=== PATIENT | female | born 1970 | race Caucasian/White ===

== ENCOUNTER 2017-03-20 09:12 | Day surgery (SDC) | payer BC ==
[2017-03-19 12:07] LABS: CHLORIDE,CL 104 mmol/L (98-110); SODIUM,NA 137 mmol/L (136-146)
[~2017-03-20 09:12] MED LIST: Fluorescein 5 ML Vial ONE; Ketorolac 30 MG/ML SDV ONE; Lactated Ringers 1,000 ML IV SCH; Lidocaine 2% 5 ML SDV ONE; Midazolam 1 MG/ML 2 ML SDV ONE; Neostigmine Methylsulfate 1 MG/ML 5 ML Syringe ONE; Octyl 2-Cyanoacrylate 1 Tube ONE; Ondansetron 4 MG/2 ML SDV ONE; Propofol 200 MG/20 ML SDV ONE; Rocuronium 10 MG/ML 10 ML Syringe ONE; Sodium Chloride 0.9% 10 ML Syringe FLUSH PRN; Sodium Chloride 0.9% 2.5 ML Syringe FLUSH PRN; ceFAZolin 2 GM in Premix Bag 1 BAG IV ONE; fentaNYL 100 MCG/2 ML SDV ONE
--- NOTE | 2017-03-20 10:09 | PCM.PREANE ---
Preanesthetic Assessment - Anesthesia/Transfusion/Family Hx Anesthesia History: Prior Anesthesia Without Reaction Family History of Anesthesia Reaction: No Transfusion History: No Prior Transfusion(s) - Review of Systems General: No Symptoms Pulmonary: No Symptoms Cardiovascular: No Symptoms Gastrointestinal: No Symptoms Neurological: Pre-Existing Deficit Other: Reports: None - Physical Assessment NPO Status Date: 03/19/17 Height: 1.7 m Weight: 83.007 kg ASA Class: 2 Mental Status: Alert & Oriented x3 Airway Class: Mallampati = 1 Dentition: Reports: Missing Tooth/Teeth ROM/Head Extension: Full Lungs: Clear to Auscultation, Normal Respiratory Effort Cardiovascular: Regular Rate, Regular Rhythm - Lab Values: Laboratory Last Values WBC 5.92 K/uL (4.0-11.0) 03/19/17 11:32 RBC 4.03 M/uL (4.30-5.90) L 03/19/17 11:32 Hgb 12.3 g/dL (12.0-16.0) 03/19/17 11:32 Hct 37.8 % (36.0-46.0) 03/19/17 11:32 MCV 93.8 fL (80.0-98.0) 03/19/17 11:32 MCH 30.5 pg (27.0-32.0) 03/19/17 11:32 MCHC 32.5 g/dL (31.0-37.0) 03/19/17 11:32 RDW Std Deviation 41.7 fl (28.0-62.0) 03/19/17 11:32 RDW Coeff of Tanesha 12 % (11.0-15.0) 03/19/17 11:32 Plt Count 273 K/uL (150-400) 03/19/17 11:32 MPV 9.80 fL (7.40-12.00) 03/19/17 11:32 Nucleated RBC % 0.0 /100WBC 03/19/17 11:32 Nucleated RBCs # 0 K/uL 03/19/17 11:32 Sodium 137 mmol/L (136-146) 03/19/17 11:32 Potassium 4.7 mmol/L (3.5-5.1) 03/19/17 11:32 Chloride 104 mmol/L (98-110) 03/19/17 11:32 Carbon Dioxide 26 mmol/L (21-31) 03/19/17 11:32 BUN 13 mg/dL (6.0-23.0) 03/19/17 11:32 Creatinine 0.7 mg/dL (0.6-1.5) 03/19/17 11:32 Est Cr Clr Drug Dosing TNP 03/19/17 11:32 Estimated GFR (MDRD) > 60.0 ml/min 03/19/17 11:32 Glucose 196 mg/dL (60-110) H 03/19/17 11:32 POC Glucose 199 mg/dL (60-110) H 03/20/17 09:42 Calcium 9.0 mg/dL (8.8-10.8) 03/19/17 11:32 HCG, Qual NEGATIVE (NEG) 03/19/17 11:32 Blood Type O POSITIVE 03/19/17 11:32 Antibody Screen NEGATIVE 03/19/17 11:32 - Allergies Allergies/Adverse Reactions: Allergies Allergy/AdvReac Type Severity Reaction Status Date / Time hydromorphone [From Dilaudid] Allergy Chest Verified 03/20/17 09:49 Tightness morphine Allergy Chest Verified 03/20/17 09:49 Tightness Sulfa (Sulfonamide Allergy Airway Verified 03/20/17 09:49 Antibiotics) Tightness Tetracyclines Allergy Anaphylactic Verified 03/20/17 09:49 Shock - Acknowledgements Anesthesia Type Planned: General Anesthesia Pt an Appropriate Candidate for the Planned Anesthesia: Yes Alternatives and Risks of Anesthesia Discussed w Pt/Guardian: Yes Pt/Guardian Understands and Agrees with Anesthesia Plan: Yes Additional Comments: consents to fentanyl and dilaudid in OR, dislikes the way she feels with dilaudid and morphine when awake. 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 Musculoskeletal History: Reports: Back Pain, Chronic Neurological History: Reports: Neuropathy, Peripheral Psychiatric History: Reports: Anxiety, Depression, PTSD Endocrine/Metabolic History: Reports: Diabetes, Type II Hematologic History: Reports: Anemia Immunologic History: Reports: None Oncologic (Cancer) History: Reports: None Dermatologic History: Reports: None - Past Surgical History Head Surgeries/Procedures: Reports: None HEENT Surgical History: Reports: Tonsillectomy Cardiovascular Surgical History: Reports: None Respiratory Surgical History: Reports: None GI Surgical History: Reports: Bariatric Procedure, Cholecystectomy Female Surgical History: Reports: Section Neurological Surgical History: Reports: Laminectomy Musculoskeletal Surgical History: Reports: None Oncologic Surgical History: Reports: None - SUBSTANCE USE Smoking Status *Q: Never Smoker Recreational Drug Use History: No - HOME MEDS Home Medications: Home Meds LORazepam 0.5 mg PO ASDIRECTED PRN 03/19/17 [History] Lisinopril 20 mg PO DAILY 03/19/17 [History] QUEtiapine Fumarate [Seroquel] 50 mg PO BEDTIME 03/19/17 [History] Sertraline [Zoloft] 50 mg PO DAILY 03/19/17 [History] metFORMIN HCl [Metformin HCl] 1,000 mg PO BIDMEALS 03/19/17 [History] Canagliflozin [Invokana] 300 mg PO DAILY 03/20/17 [History] Cyanocobalamin (Vitamin B12) [Vitamin B12] 1,000 mcg PO DAILY 03/20/17 [History] Cyclobenzaprine HCl 10 mg PO ASDIRECTED PRN 03/20/17 [History] Ferrous Sulfate 325 mg PO DAILY 03/20/17 [History] Methylphenidate HCl 5 mg PO WITHLUNCH 03/20/17 [History] Methylphenidate HCl [Methylphenidate HCl ER] 36 mg PO DAILY 03/20/17 [History] Potassium Chloride 20 meq PO DAILY 03/20/17 [History] atorvaSTATin Calcium [Atorvastatin Calcium] 20 mg PO DAILY 03/20/17 [History] - CURRENT (IN HOUSE) MEDS Current Meds: Current Medications Lactated Ringer's (Ringers, Lactated) 1,000 mls @ 125 mls/hr IV ASDIRECTED [facility] Last Admin: 03/20/17 09:36 Dose: 125 mls/hr Sodium Chloride (Saline Flush) 10 ml FLUSH ASDIRECTED PRN PRN Reason: Keep Vein Open Sodium Chloride (Saline Flush) 2.5 ml FLUSH ASDIRECTED PRN PRN Reason: Keep Vein Open Discontinued Medications Fentanyl (Sublimaze) Confirm Administered Dose 300 mcg .ROUTE .STK-MED ONE Stop: 03/20/17 08:03 Fluorescein Sodium (Ak-Fluor) Confirm Administered Dose 5 ml .ROUTE .STK-MED ONE Stop: 03/20/17 06:51 Fluorescein Sodium (Ak-Fluor) Confirm Administered Dose 5 ml .ROUTE .STK-MED ONE Stop: 03/20/17 07:16 Glycopyrrolate () Confirm Administered Dose 1 mg .ROUTE .STK-MED ONE Stop: 03/20/17 08:05 Cefazolin Sodium/Dextrose 2 gm (/ Premix) 50 mls @ 100 mls/hr IV ONETIME ONE Stop: 03/19/17 09:22 Ketorolac Tromethamine (Toradol) Confirm Administered Dose 30 mg .ROUTE .STK- MED ONE Stop: 03/20/17 08:05 Lidocaine (Xylocaine-Mpf 2%) Confirm Administered Dose 10 ml .ROUTE .ST-MED ONE Stop: 03/20/17 08:02 Midazolam HCl (Versed 1 Mg/Ml) Confirm Administered Dose 2 mg .ROUTE .STK-MED ONE Stop: 03/20/17 08:03 Neostigmine Methylsulfate (Neostigmine) Confirm Administered Dose 5 mg .ROUTE .ST-MED ONE Stop: 03/20/17 08:05 Octyl Cyanoacrylate (Dermabond Advance) Confirm Administered Dose 1 applic .ROUTE .ST-MED ONE Stop: 03/20/17 07:16 Ondansetron HCl (Zofran) Confirm Administered Dose 4 mg .ROUTE .STK-MED ONE Stop: 03/20/17 08:05 Propofol (Diprivan 20 Ml) Confirm Administered Dose 400 mg .ROUTE .STK-MED ONE Stop: 03/20/17 08:02 Rocuronium [place] (Zemuron) Confirm Administered Dose 100 mg .ROUTE .STK-MED ONE Stop: 03/20/17 08:05
[2017-03-20] MEDS ORDERED: HYDROmorphone 2 MG/ML Syringe ONE (12:19)
[2017-03-20] MEDS ORDERED: Furosemide 40 MG/4 ML VIAL ONE (12:22)
[2017-03-20] MEDS ORDERED: fentaNYL 100 MCG/2 ML SDV IVPUSH PRN (12:27)
[2017-03-20] MEDS ORDERED: Acetaminophen/oxyCODONE 325-5 MG Tab PO PRN (12:52)
[2017-03-20] MEDS ORDERED: Promethazine 25 MG/ML SDV IM PRN (12:52)
[2017-03-20] MEDS ORDERED: Ondansetron 4 MG/2 ML SDV IVPUSH PRN (12:52)
[2017-03-20] MEDS ORDERED: Ketorolac 30 MG/ML SDV IVPUSH PRN (12:52)
[2017-03-20] MEDS ORDERED: Morphine 4 MG/ML Syringe IVPUSH PRN (12:52)
--- NOTE | 2017-03-20 12:57 | PCM.OPNOTE ---
- General Post-Op/Procedure Note Date of Surgery/Procedure: 03/20/17 Operative Procedure(s): TLH Bilatral salpengectomy left overactomy Pre Op Diagnosis: bleeding Post-Op Diagnosis: Same Anesthesia Technique: General ET Tube Primary Surgeon: Junito Buchanan Artist'S Manager: Jazmyn Irizarry EBL in mLs: 50 Complications: None Condition: Good
--- NOTE | 2017-03-20 13:54 | PCM.POSTAN ---
POST ANESTHESIA ASSESSMENT - MENTAL STATUS Mental Status: Alert, Oriented - RESPIRATORY Respiratory Status: Respiratory Rate WNL, Airway Patent, O2 Saturation Stable - CARDIOVASCULAR CV Status: Pulse Rate WNL, Blood Pressure Stable - GASTROINTESTINAL GI Status: No Symptoms - POST OP HYDRATION Hydration Status: Adequate & Stable
[2017-03-20] MEDS ORDERED: Meperidine PF 50 MG/ML Syringe IVPUSH PRN (15:12)
--- NOTE | 2017-03-20 19:33 | OR ---
SURGEON: Junito Buchanan MD DATE OF PROCEDURE: PREOPERATIVE DIAGNOSES: Postmenopausal bleeding and menorrhagia. POSTOPERATIVE DIAGNOSES: Postmenopausal bleeding and menorrhagia. OPERATION PERFORMED: Total laparoscopic hysterectomy, bilateral salpingectomy, left oophorectomy preserving the right ovary. SOCIAL WORK ADMINISTRATOR: VARUN Quevedo. ANESTHESIA: General endotracheal intubation, Yared Chmabers and Dr. Newman. ESTIMATED BLOOD LOSS: 50 mL. COMPLICATIONS: None. FINDINGS: Uterus 8-week size. Both ovaries are within normal limits. INDICATION: [place] refer to the admit note. PROCEDURE IN DETAIL: The patient was brought to the OR, properly identified, and after adequate level of general anesthesia, the patient was placed in lithotomy position with an access to the abdomen and the vagina, the uterine manipulator and colpotomizer were placed in the vagina for manipulation and then the operation shifted abdominally. After placing Donahue catheter in the bladder, stab wound was done beneath the umbilicus. The Veress needle was placed in the peritoneal cavity and that cavity insufflated with 6 L of carbon dioxide. The skin incision large to accommodate the trocar and the laparoscopy through it utilizing the Visiport technique. Once we are entered, inspection was done with the laparoscopy with above-mentioned dictated finding, 10-12 trocar placed in the left iliac fossa and 5-mm trocar in the right iliac fossa and after identifying the landmark of the pelvis using the Filiberto Harmonic scapula, the superior pedicle coagulated, transected from both sides. The tubes and ovary on the left side were removed and the round ligament was dissected, coagulated, transected. The ovary on the right side is preserved, but the tube was removed. After taken down the round ligament from both sides, then the anterior leaf of the broad ligament dissected downward medially pushing the bladder completely away from the operative field, and I can feel the uterine manipulator through the vagina. Then, the attention was paid to the uterine vessel. Then, this vessel coagulated, transected with the FILIBERTO-7 Harmonic scapula, and then circular incision in the vaginal mucosa around the tip of the manipulator detaching the cervix from its attachment to the vagina. The cervix in the right and left tubes and the left ovary was removed and then pneumoperitoneum re-established by placing vaginal pack in the vagina and we proceeded to close the vaginal cuff with 2-0 PDS interrupted sutures. While we closing that we asked the anesthesiologist to give the patient fluorescein and then after closing the vagina, and inspecting all operative field and all the pedicle, there was no oozing, no bleeding. Then, the Donahue catheter was removed. Cystoscopy was performed. The bladder was intact. Both ureteric orifices were seen with the dye coming from both of them. Thus, the patency of both ureters verified. Satisfied with these findings, the procedure ended. The instrument and hardware were retrieved from the abdomen and the vagina. The multiple laparoscopic incisions were closed in layers. Instrument and sponge count were correct. The patient tolerated the procedure well, went to recovery room in stable general condition. MATT / LUIS /[id number]
[2017-03-21 05:29] LABS: CHLORIDE,CL 107 mmol/L (98-110); SODIUM,NA 142 mmol/L (136-146)
[2017-03-21 07:49] VITALS: BP 130/81
--- NOTE | 2017-03-21 09:01 | PCM.SURGPN ---
- General Info Date of Service: 03/21/17 POD#: 1 Functional Status: Reports: Pain Controlled - Review of Systems General: Reports: No Symptoms HEENT: Reports: No Symptoms Pulmonary: Reports: No Symptoms Cardiovascular: Reports: No Symptoms Gastrointestinal: Reports: No Symptoms Genitourinary: Reports: No Symptoms Musculoskeletal: Reports: No Symptoms Skin: Reports: No Symptoms Neurological: Reports: No Symptoms Psychiatric: Reports: No Symptoms - Patient Data Vitals - Most Recent: Last Vital Signs Temp 37.1 C 03/21/17 07:48 Pulse 82 03/21/17 07:48 Resp 18 03/21/17 07:48 BP 130/81 03/21/17 07:48 Pulse Ox 96 03/21/17 07:48 Weight - Most Recent: 83.007 kg I&O - Last 24 Hours: Intake & Output 03/20/17 03/21/17 03/21/17 22:59 06:59 14:59 Intake Total 627 600 Output Total 0 2250 Balance 627 -1650 Lab Results Last 24 Hrs: Laboratory Results - last 24 hr 03/20/17 03/21/17 03/21/17 Range/Units 09:42 04:45 04:45 WBC 6.71 (4.0-11.0) K/uL RBC 3.77 L (4.30-5.90) M/uL Hgb 11.6 L (12.0-16.0) g/dL Hct 35.4 L (36.0-46.0) % MCV 93.9 (80.0-98.0) fL MCH 30.8 (27.0-32.0) pg MCHC 32.8 (31.0-37.0) g/dL RDW Std Deviation 41.4 (28.0-62.0) fl RDW Coeff of Tanesha 12 (11.0-15.0) % Plt Count 251 (150-400) K/uL MPV 10.00 (7.40-12.00) fL Neut % (Auto) 69.3 (48.0-80.0) % Lymph % (Auto) 19.4 (16.0-40.0) % [place] % (Auto) 8.3 (0.0-15.0) % Eos % (Auto) 3.0 (0.0-7.0) % Baso % (Auto) 0.0 (0.0-1.5) % Neut # (Auto) 4.7 (1.4-5.7) K/uL Lymph # (Auto) 1.3 (0.6-2.4) K/uL [place] # (Auto) 0.6 (0.0-0.8) K/uL Eos # (Auto) 0.2 (0.0-0.7) K/uL Baso # (Auto) 0.0 (0.0-0.1) K/uL Nucleated RBC % 0.0 /100WBC Nucleated RBCs # 0 K/uL Sodium 142 (136-146) mmol/L Potassium 4.3 (3.5-5.1) mmol/L Chloride 107 (98-110) mmol/L Carbon Dioxide 28 (21-31) mmol/L BUN 9 (6.0-23.0) mg/dL Creatinine 0.7 (0.6-1.5) mg/dL Est Cr Clr Drug Dosing 98.69 mL/min Estimated GFR (MDRD) > 60.0 ml/min Glucose 169 H (60-110) mg/dL POC Glucose 199 H (60-110) mg/dL Calcium 8.3 L (8.8-10.8) mg/dL Med Orders - Current: Current Medications Fentanyl (Sublimaze) 50 mcg IVPUSH Q5M PRN PRN Reason: Pain (severe 7-10) Stop: 03/21/17 12:27 Lactated Ringer's (Ringers, Lactated) 1,000 mls @ 125 mls/hr IV ASDIRECTED [facility] Last Admin: 03/20/17 09:36 Dose: 125 mls/hr Ketorolac Tromethamine (Toradol) 30 mg IVPUSH Q6H PRN PRN Reason: Pain (severe 7-10) Stop: 03/25/17 12:52 Meperidine HCl (Demerol) 50 mg IVPUSH Q4H PRN PRN Reason: Pain Ondansetron HCl (Zofran) 4 mg IVPUSH Q6H PRN PRN Reason: Nausea/Vomiting Oxycodone/Acetaminophen (Percocet 325-5 Mg) 2 tab PO Q4H PRN PRN Reason: Pain (moderate 4-6) Promethazine HCl (Phenergan) 25 mg IM Q6H PRN PRN Reason: Nausea/Vomiting Sodium Chloride (Saline Flush) 10 ml FLUSH ASDIRECTED PRN PRN Reason: Keep Vein Open Sodium Chloride (Saline Flush) 2.5 ml FLUSH ASDIRECTED PRN PRN Reason: Keep Vein Open Discontinued Medications Fentanyl (Sublimaze) Confirm Administered Dose 300 mcg .ROUTE .STK-MED ONE Stop: 03/20/17 08:03 Fluorescein Sodium (Ak-Fluor) Confirm Administered Dose 5 ml .ROUTE .STK-MED ONE Stop: 03/20/17 06:51 Fluorescein Sodium (Ak-Fluor) Confirm Administered Dose 5 ml .ROUTE .STK-MED ONE Stop: 03/20/17 07:16 Furosemide (Lasix) Confirm Administered Dose 40 mg .ROUTE .STK-MED ONE Stop: 03/20/17 12:23 Glycopyrrolate () Confirm Administered Dose 1 mg .ROUTE .STK-MED ONE Stop: 03/20/17 08:05 Hydromorphone HCl (Dilaudid) Confirm Administered Dose 2 mg .ROUTE .STK-MED ONE Stop: 03/20/17 12:20 Cefazolin Sodium/Dextrose 2 gm (/ Premix) 50 mls @ 100 mls/hr IV ONETIME ONE Stop: 03/19/17 09:22 Last Admin: 03/20/17 16:02 Dose: Not Given Ketorolac Tromethamine (Toradol) Confirm Administered Dose 30 mg .ROUTE .STK- MED ONE Stop: 03/20/17 08:05 Lidocaine (Xylocaine-Mpf 2%) Confirm Administered Dose 10 ml .ROUTE .STK-MED ONE Stop: 03/20/17 08:02 Midazolam HCl (Versed 1 Mg/Ml) Confirm Administered Dose 2 mg .ROUTE .STK-MED ONE Stop: 03/20/17 08:03 Morphine Sulfate (Morphine) 4 mg IVPUSH Q2H PRN PRN Reason: Pain (severe 7-10) Neostigmine Methylsulfate (Neostigmine) Confirm Administered Dose 5 mg .ROUTE .STK-MED ONE Stop: 03/20/17 08:05 Octyl Cyanoacrylate (Dermabond Advance) Confirm Administered Dose 1 applic .ROUTE .STK-MED ONE Stop: 03/20/17 07:16 Ondansetron HCl (Zofran) Confirm Administered Dose 4 mg .ROUTE .STK-MED ONE Stop: 03/20/17 08:05 Propofol (Diprivan 20 Ml) Confirm Administered Dose 400 mg .ROUTE .STK-MED ONE Stop: 03/20/17 08:02 Rocuronium [place] (Zemuron) Confirm Administered Dose 100 mg .ROUTE .STK-MED ONE Stop: 03/20/17 08:05 - Exam Wound/Incisions: Healing Well General: Alert, Oriented HEENT: Pupils Equal Neck: Supple Lungs: Clear to Auscultation, Normal Respiratory Effort Cardiovascular: Regular Rate, Regular Rhythm GI/Abdominal Exam: Normal Bowel Sounds, Soft, Non-Tender, No Organomegaly, No Distention, No Abnormal Bruit, No Mass, Pelvis Stable Extremities: Normal Inspection, Normal Range of Motion, Non-Tender, No Pedal Edema, Normal Capillary Refill Skin: Warm, Dry, Intact Neurological: No New Focal Deficit Psy/Mental Status: Alert, Normal Affect, Normal Mood - Problem List Review Problem List Initiated/Reviewed/Updated: Yes - My Orders Last 24 Hours: Active Orders 24 hr Category Date Time Status Patient Status [ADT] Routine ADT 03/20/17 12:52 Active Blood Glucose Check, Bedside [RC] ONETIME Care 03/20/17 10:12 Active Communication Order [RC] ROUTINE Care 03/20/17 15:16 Active Notify Provider Vital Signs [RC] ASDIRECTED Care 03/20/17 12:52 Active RT Incentive Spirometry [RC] Q2HWA Care 03/20/17 12:52 Active Up With Assistance [RC] PER UNIT ROUTINE Care 03/20/17 12:52 Active Up ad Lucrecia [RC] PER UNIT ROUTINE Care 03/20/17 12:52 Active Vital Signs [RC] PER UNIT ROUTINE Care 03/20/17 12:52 Active Regular Diet [DIET] Diet 03/20/17 Dinner Active Acetaminophen/oxyCODONE [Percocet 325-5 MG] Med 03/20/17 12:52 Active 2 tab PO Q4H PRN Ketorolac [Toradol] Med 03/20/17 12:52 Active 30 mg IVPUSH Q6H PRN Meperidine [Demerol] Med 03/20/17 15:12 Active 50 mg IVPUSH Q4H PRN Ondansetron [Zofran] Med 03/20/17 12:52 Active 4 mg IVPUSH Q6H PRN Promethazine [Phenergan] Med 03/20/17 12:52 Active 25 mg IM Q6H PRN fentaNYL [Sublimaze] Med 03/20/17 12:27 Active 50 mcg IVPUSH Q5M PRN Peripheral IV Discontinue [OM.PC] Routine Oth 03/20/17 12:52 Ordered Sequential Compression Device [OM.PC] Per Unit Routine Oth 03/20/17 12:52 Ordered Resuscitation Status Routine Resus Stat 03/20/17 12:52 Ordered Medication Orders Fentanyl (Sublimaze) 50 mcg IVPUSH Q5M PRN PRN Reason: Pain (severe 7-10) Stop: 03/21/17 12:27 Lactated Ringer's (Ringers, Lactated) 1,000 mls @ 125 mls/hr IV ASDIRECTED [facility] Last Admin: 03/20/17 09:36 Dose: 125 mls/hr Ketorolac Tromethamine (Toradol) 30 mg IVPUSH Q6H PRN PRN Reason: Pain (severe 7-10) Stop: 03/25/17 12:52 Meperidine HCl (Demerol) 50 mg IVPUSH Q4H PRN PRN Reason: Pain Ondansetron HCl (Zofran) 4 mg IVPUSH Q6H PRN PRN Reason: Nausea/Vomiting Oxycodone/Acetaminophen (Percocet 325-5 Mg) 2 tab PO Q4H PRN PRN Reason: Pain (moderate 4-6) Promethazine HCl (Phenergan) 25 mg IM Q6H PRN PRN Reason: Nausea/Vomiting Sodium Chloride (Saline Flush) 10 ml FLUSH ASDIRECTED PRN PRN Reason: Keep Vein Open Sodium Chloride (Saline Flush) 2.5 ml FLUSH ASDIRECTED PRN PRN Reason: Keep Vein Open - Assessment Assessment (Free Text/Narrative):: Status post hysterectomy postoperative day #1 the patient doing well voiding without any problem of vaginal bleeding virus signs century is normal - Plan Plan (Free Text/Narrative):: The patient will be sent home today the postvasectomy instruction is given to the patient I given a prescription for Percocet 7.5/325 for postoperative pain the patient have an appointment to see in the office in 1 week
--- NOTE | 2017-03-21 23:20 | PCM48HPAN ---
Post Anesthesia Note - EVALUATION WITHIN 48HRS OF ANESTHETIC Vital Signs in Normal Range: Yes Patient Participated in Evaluation: Yes Respiratory Function Stable: Yes Airway Patent: Yes Cardiovascular Function Stable: Yes Hydration Status Stable: Yes Pain Control Satisfactory: Yes Nausea and Vomiting Control Satisfactory: Yes Mental Status Recovered: Yes
== END 2017-03-21 10:04 | disposition home or self-care (01) ==
LOC: MW.SDS 09:12 → MW.MS 14:09 → MW.SDS 03-21 10:04
PROVIDERS: ATTEND Obstetrics & Gynecology
PROC: 0UT94ZZ Resection of Uterus, Percutaneous Endoscopic Approach (ICD-10-PCS; principal; 2017-03-20)
PROC: 0UTC4ZZ Resection of Cervix, Percutaneous Endoscopic Approach (ICD-10-PCS; 2017-03-20)
PROC: 0UT04ZZ Resection of Right Ovary, Percutaneous Endoscopic Approach (ICD-10-PCS; 2017-03-20)
PROC: 0UT74ZZ Resection of Bilateral Fallopian Tubes, Percutaneous Endoscopic Approach (ICD-10-PCS; 2017-03-20)
DX: D25.0 Submucous leiomyoma of uterus (principal); N83.322 Acquired atrophy of left fallopian tube; N83.321 Acquired atrophy of right fallopian tube; F90.9 Attention-deficit hyperactivity disorder, unspecified type; F31.9 Bipolar disorder, unspecified; I10 Essential (primary) hypertension; D50.9 Iron deficiency anemia, unspecified; E87.6 Hypokalemia; E11.42 Type 2 diabetes mellitus with diabetic polyneuropathy; K21.9 Gastro-esophageal reflux disease without esophagitis; F41.9 Anxiety disorder, unspecified; Z87.440 Personal history of urinary (tract) infections; Z79.84 Long term (current) use of oral hypoglycemic drugs; Z79.899 Other long term (current) drug therapy; Z88.5 Allergy status to narcotic agent; Z88.2 Allergy status to sulfonamides; Z88.1 Allergy status to other antibiotic agents; Z90.49 Acquired absence of other specified parts of digestive tract; Z98.890 Other specified postprocedural states
CPT/HCPCS: 36415; 58571; 80048; 82962; 84703; 85025; 85027; 86850; 86900; 86901; A9270; J1170; J1885; J1940; J2250; J2405; J3010; J7120; 00840; 88309; J2704

== ENCOUNTER 2020-06-11 19:48 | Observation (INO) | payer BC ==
[2020-06-11] MEDS ORDERED: Sodium Chloride 0.9% 2.5 ML Syringe FLUSH PRN (20:08)
[2020-06-11] MEDS ORDERED: Ondansetron 4 MG/2 ML SDV IVPUSH ONE ×3 (20:08→23:19)
[2020-06-11] MEDS ORDERED: Sodium Chloride 0.9% 10 ML Syringe FLUSH PRN (20:08)
[2020-06-11] MEDS ORDERED: Sodium Chloride 0.9% 1,000 ML IV SCH (20:15)
[2020-06-11 20:33] LABS: BLOOD UREA NITROGEN,BUN 10 mg/dL (7.0-18.0); CARBON DIOXIDE,CO2 24.6 mmol/L (21.0-32.0); CHLORIDE,CL 100 mmol/L (98-107); GLUCOSE RANDOM 285 mg/dL (74-106); LIPASE 142 U/L (73-393); POTASSIUM,K 3.7 mmol/L (3.5-5.1); SODIUM,NA 136 mmol/L (136-145)
[2020-06-11] MEDS ORDERED: Metoclopramide 10 MG/2 ML SDV IVPUSH ONE (20:55)
[2020-06-11] MEDS ORDERED: fentaNYL 50 MCG/ML SDV IVPUSH ONE ×2 (21:02→23:19)
--- NOTE | 2020-06-11 21:18 | CR ---
Indication: Vomiting blood Technique: Chest 1 view Comparison: None Findings/Impression: Cardiovascular and mediastinum: Heart size and vasculature are normal in caliber and appearance. Mediastinum is within normal limits. Lungs and pleural space: Lungs are clear. No sign of infiltrate or mass. No sign of pleural effusion. No pneumothorax. Bones and soft tissues: No significant findings. Dictated by Maria Fernanda Nogueira MD @ Jun 11 2020 9:17PM Signed by Dr. Maria Fernanda Nogueira @ Jun 11 2020 9:17PM
[2020-06-11] MEDS ORDERED: Pantoprazole 80 MG in Sodium Chloride 0.9% 20 ML IVPUSH ONE (21:37)
[2020-06-11] MEDS ORDERED: Iopamidol 755 MG/ML 500 ML Multipack Bottle IVPUSH STA (22:26)
--- NOTE | 2020-06-11 22:30 | CT ---
INDICATION: Nausea, vomiting, history head injury TECHNIQUE: CT Head without i.v. contrast. COMPARISON: None FINDINGS: CSF space: The ventricles are normal for age. Brain: No evidence of mass, acute infarction or hemorrhage is seen. No mass-effect or midline shift is seen. The brain parenchyma is otherwise normal in appearance with preservation of the pittman-white matter junction. Calvarium: The visualized paranasal sinuses are well aerated. The mastoid air cells are clear. The visualized orbits are grossly unremarkable. The calvarium is unremarkable in appearance with no fractures identified. IMPRESSION: 1. No evidence of acute infarction, intracranial hemorrhage, or mass-effect seen. Please note that all CT scans at this facility use dose modulation, iterative reconstruction, and/or weight-based dosing when appropriate to reduce radiation dose to as low as reasonably achievable. Dictated by: Bob Bravo MD @ 06/11/2020 22:29:12 (Electronically Signed)
--- NOTE | 2020-06-11 22:36 | CT ---
INDICATION: Nausea, vomiting, abdominal pain TECHNIQUE: CT Abdomen and pelvis with i.v. contrast. Coronal and sagittal reformats were obtained. CONTRAST: 100 mL Isovue 370 COMPARISON: None FINDINGS: Moderate image quality degradation noted due to beam hardening artifacts from scanning with the arms by the patient`s side and from body habitus. Lower chest: Unremarkable. Liver: Unremarkable. Spleen: Unremarkable. Pancreas: Unremarkable. Gallbladder: Previous cholecystectomy noted with mild intra- and extrahepatic biliary ductal dilatation seen. Kidney: Unremarkable. No kidney or ureteral stones or obstruction seen. Adrenal: Unremarkable. Bowel: The patient is status post prior gastric surgery. Mild wall thickening of the gastric antrum is present. Previous appendectomy noted with no significant appendiceal stump identified. Vascular: Unremarkable. Lymph: Unremarkable. Peritoneum: Unremarkable. No pneumoperitoneum is seen. No significant ascites is noted. Pelvis: Moderate bladder distention is noted. The patient is status post prior hysterectomy. Soft tissue: Unremarkable. Bone: There is an 8 mm sclerotic lesion within the right iliac bone which in isolation is most likely due to a bone island. IMPRESSION: 1. Mild wall thickening of the gastric antrum is present. This may be due to gastritis or peptic ulcer disease and confirmation with barium GI series or endoscopy is recommended. Dictated by Bob Bravo MD @ 06/11/2020 10:35:28 PM Please note that all CT scans at this facility use dose modulation, iterative reconstruction, and/or weight-based dosing when appropriate to reduce radiation dose to as low as reasonably achievable. Dictated by: Bob Bravo MD @ 06/11/2020 22:35:33 (Electronically Signed)
--- NOTE | 2020-06-11 23:14 | EDM.PDOC ---
ED HPI GENERAL MEDICAL PROBLEM - General Chief Complaint: Gastrointestinal Problem Stated Complaint: RECENT CONCUSSION, VOMITTING, DIZZINESS Time Seen by Provider: 06/11/20 19:50 - History of Present Illness INITIAL COMMENTS - FREE TEXT/NARRATIVE: HISTORY AND PHYSICAL: History of present illness: The 50-year-old female with history significant for hypertension, diabetes, episodes of pancreatitis of unclear etiology, status post cholecystectomy, status post appendectomy, status post total abdominal hysterectomy, status post duodenal switch for weight loss, who presents ER today secondary to abdominal pain times several days. Patient reports that the abdominal pain increased significantly this evening with episodes of nausea and vomiting with blood in it. Patient reports that approximately 2 weeks ago she had an episode of vomiting with blood and saw her PCP. Patient's PCP started her on some anxiety/stress reducing exercises and told her that if the symptoms persisted that she would schedule her for an endoscopy. Patient reports that throughout the course of the last 2 weeks has been having intermittent episodes of abdominal discomfort. She reports over the last 24 hours she had decreased p.o. intake. She reports that she last ate a bowl of soup and crackers at approximately 1:30 PM. This evening she started having episodes of emesis with dark bloody material. Patient denies being on any nonsteroidals or any other pain medicines. Patient reports no history of peptic ulcer disease in the past. Patient has any melena or bright red blood per rectum. Patient denies any dizziness. Patient denies any near-syncope. Patient reports that approximately 1 week ago she was seen at [facility] secondary to slipping and falling on ice and hitting her head. Patient reports that she has recovered from that and has not required any NSAIDs for the pain. Patient has any recent fevers, shakes, chills, diarrhea, melena, bright red blood per rectum, dysuria, frequency, urgency, hematuria. 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 Review of systems: As per history of present illness and below otherwise all systems reviewed and negative. Past medical history: As per history of present illness and as reviewed below otherwise noncontributory. Surgical history: As per history of present illness and as reviewed below otherwise noncontributory. Social history: No reported history of drug or alcohol abuse. Family history: As per history of present illness and as reviewed below otherwise noncontributory. Physical exam: HEENT: Atraumatic, normocephalic, pupils reactive, negative for conjunctival pallor or scleral icterus, mucous membranes moist, throat clear, neck supple, nontender, trachea midline. Lungs: Clear to auscultation, breath sounds equal bilaterally, chest nontender. Heart: S1S2, regular, negative for clicks, rubs, or JVD. Abd: Soft, nondistended, no rebound/guarding, no psoas or obturator signs, no tenderness at Mcberney's point, no Preston's sign. Pt does not present with an exam that would be consistent with an acute surgical abdomen at this time, mild tenderness to palpation diffusely greatest in the midepigastric region. While in the ED, the patient had multiple episodes of dark blood emesis approximately 15 to 20 cc of the time. Pelvis: Stable nontender. Genitourinary: Deferred. Rectal: Deferred. Extremities: Atraumatic, negative for cords or calf pain. Neurovascular unremarkable. Neuro: Awake, alert, oriented. Cranial nerves II through XII unremarkable. Cerebellum unremarkable. Motor and sensory unremarkable throughout. Exam nonfocal. Diagnostics: CBC, CMP, PT PTT, UA, lipase all within normal limits. Patient has CT scan of her abdomen pelvis. Patient is status post prior gastric surgery. Mild wall thickening of the gastric antrum is present. Previous appendectomy noted with no significant appendiceal stump identified. Mild wall thickening in the gastric antrum may be due to gastritis or peptic ulcer disease. Therapeutics: Fentanyl 50 mcg IV x1 Protonix 80 mg IV Zofran 4 mg IV NSS wide open x1 L Assessment and plan: This is a 50-year-old female who presents ER today secondary to abdominal pain with nausea vomiting of dark bloody material. Patient CT scan reveals mild wall thickening in the gastric antrum that may be due to gastritis versus peptic ulcer disease. Given patient's presentation, patient will need to be admitted for serial H&H's and likely GI work-up for endoscopy. Case will be discussed for admission with her hospitalist. Definitive disposition and diagnosis as appropriate pending reevaluation and review of above. abdomen Pain Score (Numeric/FACES): 7 - Related Data Allergies Allergy/AdvReac Type Severity Reaction Status Date / Time hydromorphone [From Dilaudid] Allergy Chest Verified 06/12/20 00:31 Tightness morphine Allergy Chest Verified 06/12/20 00:31 Tightness Sulfa (Sulfonamide Allergy Airway Verified 06/12/20 00:31 Antibiotics) Tightness Tetracyclines Allergy Anaphylactic Verified 06/12/20 00:31 Shock Home Meds: Home Meds LORazepam 0.5 mg PO ASDIRECTED PRN 03/19/17 [History] Lisinopril 20 mg PO DAILY 03/19/17 [History] metFORMIN HCl [Metformin HCl] 1,000 mg PO BIDMEALS 03/19/17 [History] Potassium Chloride 20 meq PO DAILY 03/20/17 [History] atorvaSTATin Calcium [Atorvastatin Calcium] 20 mg PO DAILY 03/20/17 [History] DULoxetine [Cymbalta] 60 mg PO DAILY 06/09/20 [History] Naltrexone 9 mg PO TID 06/09/20 [History] Ondansetron [Zofran] 4 mg BUCCAL Q6H PRN #6 tab 06/09/20 [Rx] Cyanocobalamin/FA/Pyridoxine [Folbic] 1 tab PO BID 06/12/20 [History] Insulin Glarg,Human.Rec.Analog [Lantus Solostar] 30 units SUBCUT DAILY 06/12/20 [History] Pantoprazole Sodium [Protonix] 40 mg PO BID #60 tablet. 06/13/20 [Rx] Past Medical History Other HEENT History: wears glasses Cardiovascular History: Reports: Hypertension Respiratory History: Reports: None Gastrointestinal History: Reports: GERD Genitourinary History: Reports: None [employer] History: Reports: None Musculoskeletal History: Reports: Back Pain, Chronic Neurological History: Reports: Neuropathy, Peripheral Psychiatric History: Reports: Anxiety, Depression, PTSD Other Psychiatric History: Patient is using Ritalin twice daily for attention deficit disorder and PTSD symptoms. Endocrine/Metabolic History: Reports: Diabetes, Type II Hematologic History: Reports: Anemia Immunologic History: Reports: None Oncologic (Cancer) History: Reports: None Dermatologic History: Reports: None - Infectious Disease History Infectious Disease History: Reports: Chicken Pox - Past Surgical History Head Surgeries/Procedures: Reports: None HEENT Surgical History: Reports: Tonsillectomy Cardiovascular Surgical History: Reports: None Respiratory Surgical History: Reports: None GI Surgical History: Reports: Bariatric Procedure, Cholecystectomy Female Surgical History: Reports: Section Neurological Surgical History: Reports: Laminectomy Musculoskeletal Surgical History: Reports: None Oncologic Surgical History: Reports: None Social & Family History - Family History Family Medical History: Noncontributory - Tobacco Use Tobacco Use Status *Q: Never Tobacco User - Caffeine Use Caffeine Use: Reports: Soda - Recreational Drug Use Recreational Drug Use: No - Living Situation & Occupation Living situation: Reports: Occupation: Employed ED ROS GENERAL - Review of Systems Review Of Systems: See Below ED EXAM, GENERAL - Physical Exam Exam: See Below #1 Interpretation EKG Interpretation Comments: EKG: Normal sinus rhythm heart rate of [address]-T wave abnormalities Normal axis No evidence of ST elevation [place] As interpreted by ER physician: Janay Course - Vital Signs Last Recorded V/S: Last Vital Signs Temp 97.9 F 06/13/20 12:13 Pulse 86 06/13/20 12:13 Resp 18 06/13/20 12:13 BP 139/81 06/13/20 12:13 Pulse Ox 99 06/13/20 12:13 - Orders/Labs/Meds Labs: Laboratory Tests 06/11/20 06/11/20 06/11/20 Range/Units 19:57 19:57 19:57 WBC 7.11 (4.0-11.0) K/uL RBC 4.71 (4.30-5.90) M/uL Hgb 14.3 (12.0-16.0) g/dL Hct 43.5 (36.0-46.0) % MCV 92.4 (80.0-98.0) fL MCH 30.4 (27.0-32.0) pg MCHC 32.9 (31.0-37.0) g/dL RDW Std Deviation 41.8 (28.0-62.0) fl RDW Coeff of Tanesha 12 (11.0-15.0) % Plt Count 300 (150-400) K/uL MPV 10.30 (7.40-12.00) fL Neut % (Auto) 80.1 H (48.0-80.0) % Lymph % (Auto) 17.3 (16.0-40.0) % Josephine % (Auto) 2.4 (0.0-15.0) % Eos % (Auto) 0.1 (0.0-7.0) % Baso % (Auto) 0.1 (0.0-1.5) % Neut # (Auto) 5.7 (1.4-5.7) K/uL Lymph # (Auto) 1.2 (0.6-2.4) K/uL Josephine # (Auto) 0.2 (0.0-0.8) K/uL Eos # (Auto) 0.0 (0.0-0.7) K/uL Baso # (Auto) 0.0 (0.0-0.1) K/uL Nucleated RBC % 0.0 /100WBC Nucleated RBCs # 0 K/uL INR 1.02 Sodium 136 (136-145) mmol/L Potassium 3.7 (3.5-5.1) mmol/L Chloride 100 (98-107) mmol/L Carbon Dioxide 24.6 (21.0-32.0) mmol/L BUN 10 (7.0-18.0) mg/dL Creatinine 0.9 (0.6-1.0) mg/dL Est Cr Clr Drug Dosing TNP Estimated GFR (MDRD) > 60.0 ml/min Glucose 285 H (74-106) mg/dL POC Glucose (60-110) mg/dL Calcium 9.1 (8.5-10.1) mg/dL Total Bilirubin 0.8 (0.2-1.0) mg/dL AST 21 (15-37) IU/L ALT 44 (14-63) IU/L Alkaline Phosphatase 107 (46-116) U/L Troponin I < 0.050 (0.000-0.056) ng/mL Total Protein 8.0 (6.4-8.2) g/dL Albumin 4.3 (3.4-5.0) g/dL Globulin 3.7 (2.6-4.0) g/dL Albumin/Globulin Ratio 1.2 (0.9-1.6) Lipase 142 (73-393) U/L SARS-CoV-2 RNA (HOWIE) (NEGATIVE) Blood Type 06/11/20 06/11/20 06/11/20 Range/Units 19:57 20:03 20:29 WBC (4.0-11.0) K/uL RBC (4.30-5.90) M/uL Hgb (12.0-16.0) g/dL Hct (36.0-46.0) % MCV (80.0-98.0) fL MCH (27.0-32.0) pg MCHC (31.0-37.0) g/dL RDW Std Deviation (28.0-62.0) fl RDW Coeff of Tanesha (11.0-15.0) % Plt Count (150-400) K/uL MPV (7.40-12.00) fL Neut % (Auto) (48.0-80.0) % Lymph % (Auto) (16.0-40.0) % Josephine % (Auto) (0.0-15.0) % Eos % (Auto) (0.0-7.0) % Baso % (Auto) (0.0-1.5) % Neut # (Auto) (1.4-5.7) K/uL Lymph # (Auto) (0.6-2.4) K/uL Josephine # (Auto) (0.0-0.8) K/uL Eos # (Auto) (0.0-0.7) K/uL Baso # (Auto) (0.0-0.1) K/uL Nucleated RBC % /100WBC Nucleated RBCs # K/uL INR Sodium (136-145) mmol/L Potassium (3.5-5.1) mmol/L Chloride (98-107) mmol/L Carbon Dioxide (21.0-32.0) mmol/L BUN (7.0-18.0) mg/dL Creatinine (0.6-1.0) mg/dL Est Cr Clr Drug Dosing Estimated GFR (MDRD) ml/min Glucose (74-106) mg/dL POC Glucose 291 H (60-110) mg/dL Calcium (8.5-10.1) mg/dL Total Bilirubin (0.2-1.0) mg/dL AST (15-37) IU/L ALT (14-63) IU/L Alkaline Phosphatase (46-116) U/L Troponin I (0.000-0.056) ng/mL Total Protein (6.4-8.2) g/dL Albumin (3.4-5.0) g/dL Globulin (2.6-4.0) g/dL Albumin/Globulin Ratio (0.9-1.6) Lipase (73-393) U/L SARS-CoV-2 RNA (HOWIE) NEGATIVE (NEGATIVE) Blood Type O POSITIVE Meds: Medications Discontinued Medications Generic Name Dose Route Start Last Admin Trade Name Freq PRN Reason Stop Dose Admin Dextrose/Water 50 ml 06/12/20 02:28 Dextrose 50% In Water IV ASDIRECTED PRN Hypoglycemia Fentanyl 50 mcg 06/11/20 21:02 06/11/20 21:19 Fentanyl IVPUSH 06/11/20 21:03 50 mcg ONETIME ONE Administration Fentanyl 50 mcg 06/11/20 23:19 06/11/20 23:39 Fentanyl IVPUSH 06/11/20 23:20 50 mcg ONETIME ONE Administration Fentanyl 25 mcg 06/12/20 02:27 Fentanyl IVPUSH Q3H PRN Abdominal Pain Glucagon 1 mg 06/12/20 02:28 Glucagen IM ASDIRECTED PRN Hypoglycemia Glycopyrrolate Confirm 06/12/20 11:59 Robinul Administered 06/12/20 12:00 Dose 0.2 mg .ROUTE .STK-MED ONE Sodium Chloride 1,000 mls @ 999 mls/hr 06/11/20 20:15 06/11/20 20:09 Normal Saline IV 999 mls/hr ASDIRECTED RAMONA Administration Pantoprazole Sodium 80 mg/ 20 mls @ 420 mls/hr 06/11/20 21:37 06/11/20 22:25 Sodium Chloride IVPUSH 06/11/20 21:39 420 mls/hr ONETIME ONE Administration Pantoprazole Sodium 40 mg/ 10 mls @ 300 mls/hr 06/12/20 09:00 06/13/20 09:56 Sodium Chloride IV 300 mls/hr Q12H RAMONA Administration Sodium Chloride 1,000 mls @ 125 mls/hr 06/12/20 02:30 06/13/20 06:00 Normal Saline IV 125 mls/hr ASDIRECTED RAMONA Administration Insulin Aspart 0 unit 06/12/20 02:30 06/12/20 19:39 Novolog SUBCUT Not Given Q6H [facility] Protocol Insulin Aspart 0 unit 06/12/20 17:00 06/13/20 11:27 Novolog SUBCUT Not Given TIDAC [facility] Protocol Insulin Glargine 15 units 06/12/20 21:00 06/12/20 20:53 Lantus Solostar SUBCUT 15 units BEDTIME RAMONA Administration Iopamidol 100 ml 06/11/20 22:26 06/11/20 22:27 Isovue Multipack-370 (76%) IVPUSH 06/11/20 22:27 100 ml ONETIME STA Administration Metoclopramide HCl 10 mg 06/11/20 20:55 06/11/20 21:19 Reglan IVPUSH 06/11/20 20:56 10 mg ONETIME ONE Administration Midazolam HCl Confirm 06/12/20 11:59 Versed 1 Mg/Ml Administered 06/12/20 12:00 Dose 2 mg .ROUTE .STK-MED ONE Ondansetron HCl 4 mg 06/11/20 20:08 06/11/20 20:22 Zofran IVPUSH 06/11/20 20:09 4 mg ONETIME ONE Administration Ondansetron HCl 4 mg 06/11/20 20:54 06/11/20 21:19 Zofran IVPUSH 06/11/20 20:55 4 mg ONETIME ONE Administration Ondansetron HCl 4 mg 06/11/20 23:19 06/12/20 00:03 Zofran IVPUSH 06/11/20 23:20 Not Given ONETIME ONE Ondansetron HCl 4 mg 06/12/20 01:49 06/12/20 02:01 Zofran IVPUSH 4 mg Q4H PRN Administration Nausea/Vomiting Promethazine HCl 25 mg 06/12/20 02:25 Phenergan IM Q6H PRN nausea Propofol Confirm 06/12/20 11:44 Diprivan 20 Ml Administered 06/12/20 11:45 Dose 400 mg .ROUTE .STK-MED ONE Sodium Chloride 10 ml 06/11/20 20:08 06/11/20 20:23 Saline Flush FLUSH 10 ml ASDIRECTED PRN Administration Keep Vein Open Sodium Chloride 2.5 ml 06/11/20 20:08 06/11/20 20:23 Saline Flush FLUSH 2.5 ml ASDIRECTED PRN Administration Keep Vein Open Sodium Chloride 2.5 ml 06/12/20 08:06 Saline Flush FLUSH ASDIRECTED PRN Keep Vein Open Departure - Departure Time of Disposition: 21:00 Disposition: Refer to Observation Condition: Good Clinical Impression: Vomiting, Abdominal pain, Upper GI bleeding - Discharge Information Sepsis Event Note (ED) - Evaluation Sepsis Screening Result: No Definite Risk
[2020-06-12] MEDS ORDERED: Ondansetron 4 MG/2 ML SDV IVPUSH PRN (01:49)
[2020-06-12] MEDS ORDERED: Promethazine 25 MG/ML SDV IM PRN (02:25)
[2020-06-12] MEDS ORDERED: fentaNYL 50 MCG/ML SDV IVPUSH PRN (02:27)
[2020-06-12] MEDS ORDERED: 50% Dextrose in Water 50 ML Syringe IV PRN (02:28)
[2020-06-12] MEDS ORDERED: Glucagon,Human Recombinant 1 MG Vial IM PRN (02:28)
[2020-06-12] MEDS: Sodium Chloride 0.9% 1,000 ML IV SCH ×3 (02:56→21:03)
[2020-06-12] MEDS: Insulin Aspart 100 Units/ML 3 ML Pen SUBCUT SCH ×4 (03:08→19:39)
[2020-06-12 06:23] LABS: BLOOD UREA NITROGEN,BUN 9 mg/dL (7.0-18.0); CARBON DIOXIDE,CO2 24.7 mmol/L (21.0-32.0); CHLORIDE,CL 104 mmol/L (98-107); GLUCOSE RANDOM 209 mg/dL (74-106); POTASSIUM,K 3.6 mmol/L (3.5-5.1); SODIUM,NA 139 mmol/L (136-145)
[2020-06-12] MEDS ORDERED: Sodium Chloride 0.9% 2.5 ML Syringe FLUSH PRN (08:06)
--- NOTE | 2020-06-12 08:07 | PCM.HP.2 ---
H&P History of Present Illness - General Date of Service: 06/12/20 Admit Problem/Dx: Admission Diagnosis/Problem Admission Diagnosis/Problem GI bleed not requiring more than 4 units of blood in 24 hours, ICU, or surgery Source of Information: Patient History Limitations: Reports: No Limitations - History of Present Illness Initial Comments - Free Text/Narative: This 50 year old female with pmh of HTN, DM type 2, episodes of pancreatitis, significant abdominal surgical history including appendectomy, cholecystectomy, total hysterectomy, and duodenal switch for weight loss presents to the ED today with complaints of abdominal pain and coffee ground emesis with mild streaking of blood. She reports this started approximately 2-3 weeks ago, she did see her PCP, who started on a PPI but she felt that didn't do much. She limited her oral intake to soft things and felt a little better, but then the pain and nausea, vomiting started again yesterday. She reports she has not tired Maalox, Gaviscon or Pepto Bismol. She reports intermittently using TUMS which takes the burning sensation away, but continues to have the sharp upper abdominal pain both L and R sided. She denies diarrhea or constipation. Denies black tarry or bloody stools. Denies history of this in the past. No NSAID use, no smoking or alcohol use. Denies recreational drug use. Reports having endoscopy approximately 12 years ago for abdominal pain, which she reports this was negative. Has family history of bladder cancer in mother and 'black lung" in her father along with lung cancer. No overt GI cancers or IBD in her family that she knows. She denies chest pain or SOB. No fevers or chills. No urinary concerns. In the ED no leukocytosis noted, hgb 14.3 BMP WNL, Blood sugars elevated 200s. UA negative. COVID swab negative. Headt CT negative. CXR negative. EKG SR with no signs of ischemic disease. VS, BP elevated since arrival [address] revealed mild wall thickening of the gastric antrum, which could be due to gastritis, peptic ulcer disease. She was given IVFs and protonix along with fentanyl PRN for pain. She will be admitted observation for possible acute upper GI bleeding. abdomen Pain Score (Numeric/FACES): 7 - Related Data Allergies/Adverse Reactions: Allergies Allergy/AdvReac Type Severity Reaction Status Date / Time hydromorphone [From Dilaudid] Allergy Chest Verified 06/12/20 00:31 Tightness morphine Allergy Chest Verified 06/12/20 00:31 Tightness Sulfa (Sulfonamide Allergy Airway Verified 06/12/20 00:31 Antibiotics) Tightness Tetracyclines Allergy Anaphylactic Verified 06/12/20 00:31 Shock Home Medications: Home Meds LORazepam 0.5 mg PO ASDIRECTED PRN 03/19/17 [History] Lisinopril 20 mg PO DAILY 03/19/17 [History] metFORMIN HCl [Metformin HCl] 1,000 mg PO BIDMEALS 03/19/17 [History] Potassium Chloride 20 meq PO DAILY 03/20/17 [History] atorvaSTATin Calcium [Atorvastatin Calcium] 20 mg PO DAILY 03/20/17 [History] DULoxetine [Cymbalta] 60 mg PO DAILY 06/09/20 [History] Naltrexone 9 mg PO TID 06/09/20 [History] Ondansetron [Zofran] 4 mg BUCCAL Q6H PRN #6 tab 06/09/20 [Rx] Omeprazole 20 mg PO DAILY 06/12/20 [History] Past Medical History Other HEENT History: wears glasses Cardiovascular History: Reports: Hypertension Respiratory History: Reports: None Gastrointestinal History: Reports: GERD Genitourinary History: Reports: None 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 Endocrine/Metabolic History: Reports: Diabetes, Type II Hematologic History: Reports: Anemia Immunologic History: Reports: None Oncologic (Cancer) History: Reports: None Dermatologic History: Reports: None - Infectious Disease History Infectious Disease History: Reports: Chicken Pox - Past Surgical History Head Surgeries/Procedures: Reports: None HEENT Surgical History: Reports: Tonsillectomy Cardiovascular Surgical History: Reports: None Respiratory Surgical History: Reports: None GI Surgical History: Reports: Bariatric Procedure, Cholecystectomy Female Surgical History: Reports: Section Neurological Surgical History: Reports: Laminectomy Musculoskeletal Surgical History: Reports: None Oncologic Surgical History: Reports: None Social & Family History - Family History Family Medical History: Noncontributory Respiratory: Reports: Other (See Below) (black lung and cancer, father) Oncologic: Reports: Bladder, Lung - Tobacco Use Tobacco Use Status *Q: Never Tobacco User Second Hand Smoke Exposure: No - Caffeine Use Caffeine Use: Reports: None - Recreational Drug Use Recreational Drug Use: No - Living Situation & Occupation Living situation: Reports: Occupation: Employed H&P Review of Systems - Review of Systems: Review Of Systems: See Below General: Reports: Malaise. Denies: Fever, Chills HEENT: Reports: No Symptoms. Denies: Eye Pain, Headaches, Sinus Congestion, Sore Throat, Visual Changes Pulmonary: Reports: No Symptoms. Denies: Shortness of Breath Cardiovascular: Reports: No Symptoms. Denies: Chest Pain, Lightheadedness, Syncope Gastrointestinal: Reports: Abdominal Pain (right and L upper abdominal pain, w ith burning up esophagus), Hematemesis (coffee ground, black appearing), Nausea, Vomiting. Denies: Black Stool, Bloody Stool, Diarrhea Genitourinary: Reports: No Symptoms. Denies: Dysuria, Frequency Musculoskeletal: Reports: No Symptoms Skin: Reports: No Symptoms. Denies: Erythema, Wound Psychiatric: Reports: No Symptoms Neurological: Reports: No Symptoms. Denies: Confusion, Paresthesia Hematologic/Lymphatic: Reports: No Symptoms Immunologic: Reports: No Symptoms Exam - Exam Exam: See Below - Vital Signs Vital Signs: Last Vital Signs Temp 98.6 F 06/12/20 04:00 Pulse 78 06/12/20 04:00 Resp 17 06/12/20 04:00 BP 162/89 H 06/12/20 04:00 Pulse Ox 98 06/12/20 04:00 Weight: 81.601 kg - Exam General: Alert, Oriented, Cooperative HEENT: Conjunctiva Clear, Mucosa Moist & Redan, Posterior Pharynx Clear Neck: Supple, Trachea Midline Lungs: Clear to Auscultation, Normal Respiratory Effort Cardiovascular: Regular Rate, Regular Rhythm, Normal S1, Normal S2. No: Systolic Murmur GI/Abdominal Exam: Normal Bowel Sounds, Soft, Non-Tender, No Distention, No Mass Back Exam: Normal Inspection, Full Range of Motion Extremities: Normal Inspection, Normal Range of Motion, Non-Tender, No Pedal Edema Neuro Extensive - Mental Status: Alert, Oriented x3 Neuro Extensive - Motor, Sensory, Reflexes: CN II-XII Intact, Normal Gait Psychiatric: Alert, Normal Affect, Normal Mood - Patient Data Lab Results Last 24 hrs: Laboratory Results - last 24 hr 06/11/20 06/11/20 06/11/20 Range/Units 19:57 19:57 19:57 WBC 7.11 (4.0-11.0) K/uL RBC 4.71 (4.30-5.90) M/uL Hgb 14.3 (12.0-16.0) g/dL Hct 43.5 (36.0-46.0) % MCV 92.4 (80.0-98.0) fL MCH 30.4 (27.0-32.0) pg MCHC 32.9 (31.0-37.0) g/dL RDW Std Deviation 41.8 (28.0-62.0) fl RDW Coeff of Tanesha 12 (11.0-15.0) % Plt Count 300 (150-400) K/uL MPV 10.30 (7.40-12.00) fL Neut % (Auto) 80.1 H (48.0-80.0) % Lymph % (Auto) 17.3 (16.0-40.0) % Marathon % (Auto) 2.4 (0.0-15.0) % Eos % (Auto) 0.1 (0.0-7.0) % Baso % (Auto) 0.1 (0.0-1.5) % Neut # (Auto) 5.7 (1.4-5.7) K/uL Lymph # (Auto) 1.2 (0.6-2.4) K/uL Marathon # (Auto) 0.2 (0.0-0.8) K/uL Eos # (Auto) 0.0 (0.0-0.7) K/uL Baso # (Auto) 0.0 (0.0-0.1) K/uL Nucleated RBC % 0.0 /100WBC Nucleated RBCs # 0 K/uL INR 1.02 Sodium 136 (136-145) mmol/L Potassium 3.7 (3.5-5.1) mmol/L Chloride 100 (98-107) mmol/L Carbon Dioxide 24.6 (21.0-32.0) mmol/L BUN 10 (7.0-18.0) mg/dL Creatinine 0.9 (0.6-1.0) mg/dL Est Cr Clr Drug Dosing TNP Estimated GFR (MDRD) > 60.0 ml/min Glucose 285 H (74-106) mg/dL POC Glucose (60-110) mg/dL Calcium 9.1 (8.5-10.1) mg/dL Total Bilirubin 0.8 (0.2-1.0) mg/dL AST 21 (15-37) IU/L ALT 44 (14-63) IU/L Alkaline Phosphatase 107 (46-116) U/L Troponin I < 0.050 (0.000-0.056) ng/mL Total Protein 8.0 (6.4-8.2) g/dL Albumin 4.3 (3.4-5.0) g/dL Globulin 3.7 (2.6-4.0) g/dL Albumin/Globulin Ratio 1.2 (0.9-1.6) Lipase 142 (73-393) U/L Urine Color Urine Appearance Urine pH (5.0-8.0) Ur Specific Krebs (1.001-1.035) Urine Protein (NEGATIVE) mg/dL Urine Glucose (UA) (NEGATIVE) mg/dL Urine Ketones (NEGATIVE) mg/dL Urine Occult Blood (NEGATIVE) Urine Nitrite (NEGATIVE) Urine Bilirubin (NEGATIVE) Urine Urobilinogen (<2.0) EU/dL Ur Leukocyte Esterase (NEGATIVE) SARS-CoV-2 RNA (HOWIE) (NEGATIVE) Blood Type 06/11/20 06/11/20 06/11/20 Range/Units 19:57 20:03 20:29 WBC (4.0-11.0) K/uL RBC (4.30-5.90) M/uL Hgb (12.0-16.0) g/dL Hct (36.0-46.0) % MCV (80.0-98.0) fL MCH (27.0-32.0) pg MCHC (31.0-37.0) g/dL RDW Std Deviation (28.0-62.0) fl RDW Coeff of Tanesha (11.0-15.0) % Plt Count (150-400) K/uL MPV (7.40-12.00) fL Neut % (Auto) (48.0-80.0) % Lymph % (Auto) (16.0-40.0) % Marathon % (Auto) (0.0-15.0) % Eos % (Auto) (0.0-7.0) % Baso % (Auto) (0.0-1.5) % Neut # (Auto) (1.4-5.7) K/uL Lymph # (Auto) (0.6-2.4) K/uL Marathon # (Auto) (0.0-0.8) K/uL Eos # (Auto) (0.0-0.7) K/uL Baso # (Auto) (0.0-0.1) K/uL Nucleated RBC % /100WBC Nucleated RBCs # K/uL INR Sodium (136-145) mmol/L Potassium (3.5-5.1) mmol/L Chloride (98-107) mmol/L Carbon Dioxide (21.0-32.0) mmol/L BUN (7.0-18.0) mg/dL Creatinine (0.6-1.0) mg/dL Est Cr Clr Drug Dosing Estimated GFR (MDRD) ml/min Glucose (74-106) mg/dL POC Glucose 291 H (60-110) mg/dL Calcium (8.5-10.1) mg/dL Total Bilirubin (0.2-1.0) mg/dL AST (15-37) IU/L ALT (14-63) IU/L Alkaline Phosphatase (46-116) U/L Troponin I (0.000-0.056) ng/mL Total Protein (6.4-8.2) g/dL Albumin (3.4-5.0) g/dL Globulin (2.6-4.0) g/dL Albumin/Globulin Ratio (0.9-1.6) Lipase (73-393) U/L Urine Color Urine Appearance Urine pH (5.0-8.0) Ur Specific Krebs (1.001-1.035) Urine Protein (NEGATIVE) mg/dL Urine Glucose (UA) (NEGATIVE) mg/dL Urine Ketones (NEGATIVE) mg/dL Urine Occult Blood (NEGATIVE) Urine Nitrite (NEGATIVE) Urine Bilirubin (NEGATIVE) Urine Urobilinogen (<2.0) EU/dL Ur Leukocyte Esterase (NEGATIVE) SARS-CoV-2 RNA (HOWIE) NEGATIVE (NEGATIVE) Blood Type O POSITIVE 06/11/20 06/12/20 06/12/20 Range/Units 23:33 02:57 05:45 WBC 7.93 (4.0-11.0) K/uL RBC 4.23 L (4.30-5.90) M/uL Hgb 12.5 (12.0-16.0) g/dL Hct 39.4 (36.0-46.0) % MCV 93.1 (80.0-98.0) fL MCH 29.6 (27.0-32.0) pg MCHC 31.7 (31.0-37.0) g/dL RDW Std Deviation 42.0 (28.0-62.0) fl RDW Coeff of Tanesha 13 (11.0-15.0) % Plt Count 271 (150-400) K/uL MPV 10.20 (7.40-12.00) fL Neut % (Auto) 76.7 (48.0-80.0) % Lymph % (Auto) 17.8 (16.0-40.0) % Marathon % (Auto) 5.4 (0.0-15.0) % Eos % (Auto) 0.0 (0.0-7.0) % Baso % (Auto) 0.1 (0.0-1.5) % Neut # (Auto) 6.1 H (1.4-5.7) K/uL Lymph # (Auto) 1.4 (0.6-2.4) K/uL Marathon # (Auto) 0.4 (0.0-0.8) K/uL Eos # (Auto) 0.0 (0.0-0.7) K/uL Baso # (Auto) 0.0 (0.0-0.1) K/uL Nucleated RBC % 0.0 /100WBC Nucleated RBCs # 0 K/uL INR Sodium (136-145) mmol/L Potassium (3.5-5.1) mmol/L Chloride (98-107) mmol/L Carbon Dioxide (21.0-32.0) mmol/L BUN (7.0-18.0) mg/dL Creatinine (0.6-1.0) mg/dL Est Cr Clr Drug Dosing Estimated GFR (MDRD) ml/min Glucose (74-106) mg/dL POC Glucose 203 H (60-110) mg/dL Calcium (8.5-10.1) mg/dL Total Bilirubin (0.2-1.0) mg/dL AST (15-37) IU/L ALT (14-63) IU/L Alkaline Phosphatase (46-116) U/L Troponin I (0.000-0.056) ng/mL Total Protein (6.4-8.2) g/dL Albumin (3.4-5.0) g/dL Globulin (2.6-4.0) g/dL Albumin/Globulin Ratio (0.9-1.6) Lipase (73-393) U/L Urine Color YELLOW Urine Appearance CLEAR Urine pH 7.5 (5.0-8.0) Ur Specific Krebs 1.010 (1.001-1.035) Urine Protein NEGATIVE (NEGATIVE) mg/dL Urine Glucose (UA) 500 H (NEGATIVE) mg/dL Urine Ketones 40 H (NEGATIVE) mg/dL Urine Occult Blood NEGATIVE (NEGATIVE) Urine Nitrite NEGATIVE (NEGATIVE) Urine Bilirubin NEGATIVE (NEGATIVE) Urine Urobilinogen 0.2 (<2.0) EU/dL Ur Leukocyte Esterase NEGATIVE (NEGATIVE) SARS-CoV-2 RNA (HOWIE) (NEGATIVE) Blood Type 06/12/20 Range/Units 05:45 WBC (4.0-11.0) K/uL RBC (4.30-5.90) M/uL Hgb (12.0-16.0) g/dL Hct (36.0-46.0) % MCV (80.0-98.0) fL MCH (27.0-32.0) pg MCHC (31.0-37.0) g/dL RDW Std Deviation (28.0-62.0) fl RDW Coeff of Tanesha (11.0-15.0) % Plt Count (150-400) K/uL MPV (7.40-12.00) fL Neut % (Auto) (48.0-80.0) % Lymph % (Auto) (16.0-40.0) % Marathon % (Auto) (0.0-15.0) % Eos % (Auto) (0.0-7.0) % Baso % (Auto) (0.0-1.5) % Neut # (Auto) (1.4-5.7) K/uL Lymph # (Auto) (0.6-2.4) K/uL Marathon # (Auto) (0.0-0.8) K/uL Eos # (Auto) (0.0-0.7) K/uL Baso # (Auto) (0.0-0.1) K/uL Nucleated RBC % /100WBC Nucleated RBCs # K/uL INR Sodium 139 (136-145) mmol/L Potassium 3.6 (3.5-5.1) mmol/L Chloride 104 (98-107) mmol/L Carbon Dioxide 24.7 (21.0-32.0) mmol/L BUN 9 (7.0-18.0) mg/dL Creatinine 0.7 (0.6-1.0) mg/dL Est Cr Clr Drug Dosing 95.58 Estimated GFR (MDRD) > 60.0 ml/min Glucose 209 H (74-106) mg/dL POC Glucose (60-110) mg/dL Calcium 8.1 L (8.5-10.1) mg/dL Total Bilirubin 0.7 (0.2-1.0) mg/dL AST 10 L (15-37) IU/L ALT 35 (14-63) IU/L Alkaline Phosphatase 86 (46-116) U/L Troponin I (0.000-0.056) ng/mL Total Protein 6.7 (6.4-8.2) g/dL Albumin 3.4 (3.4-5.0) g/dL Globulin 3.3 (2.6-4.0) g/dL Albumin/Globulin Ratio 1.0 (0.9-1.6) Lipase (73-393) U/L Urine Color Urine Appearance Urine pH (5.0-8.0) Ur Specific Krebs (1.001-1.035) Urine Protein (NEGATIVE) mg/dL Urine Glucose (UA) (NEGATIVE) mg/dL Urine Ketones (NEGATIVE) mg/dL Urine Occult Blood (NEGATIVE) Urine Nitrite (NEGATIVE) Urine Bilirubin (NEGATIVE) Urine Urobilinogen (<2.0) EU/dL Ur Leukocyte Esterase (NEGATIVE) SARS-CoV-2 RNA (HOWIE) (NEGATIVE) Blood Type Result Diagrams: 06/12/20 05:45 06/12/20 05:45 Sepsis Event Note - Evaluation Sepsis Screening Result: No Definite Risk - Focused Exam Vital Signs: Vital Signs Temp Pulse Resp BP Pulse Ox 06/12/20 04:00 98.6 F 78 17 162/89 H 98 06/12/20 00:00 98.0 F 82 18 167/92 H 100 06/11/20 23:43 98.2 F 80 20 173/85 H 99 06/11/20 22:23 80 20 197/92 H 100 06/11/20 21:22 75 20 161/73 H 100 06/11/20 20:24 74 16 184/94 H 100 - Problem List (1) Upper GI bleeding SNOMED Code(s): 45580883 ICD Code: K92.2 - GASTROINTESTINAL HEMORRHAGE, UNSPECIFIED Status: Acute Priority: Medium Current Visit: Yes (2) HTN (hypertension) SNOMED Code(s): 02837849 ICD Code: I10 - ESSENTIAL (PRIMARY) HYPERTENSION Status: Chronic Current Visit: Yes Qualifiers: Hypertension type: essential hypertension Qualified Code(s): I10 - Essential (primary) hypertension (3) DM type 2 (diabetes mellitus, type 2) SNOMED Code(s): 64701479 ICD Code: E11.9 - TYPE 2 DIABETES MELLITUS WITHOUT COMPLICATIONS Status: Chronic Current Visit: Yes Qualifiers: Diabetes mellitus terminal clerk insulin use: with care home use (4) History of hysterectomy SNOMED Code(s): 635612269, 141513403 ICD Code: Z90.710 - ACQUIRED ABSENCE OF BOTH CERVIX AND UTERUS Status: Chronic Current Visit: Yes (5) Hx of appendectomy SNOMED Code(s): 113623925 ICD Code: Z90.49 - ACQUIRED ABSENCE OF OTHER SPECIFIED PARTS OF DIGESTIVE TRACT Status: Chronic Current Visit: Yes (6) Hx of cholecystectomy SNOMED Code(s): 842956617, 926326938 ICD Code: Z90.49 - ACQUIRED ABSENCE OF OTHER SPECIFIED PARTS OF DIGESTIVE TRACT Status: Chronic Current Visit: Yes Problem List Initiated/Reviewed/Updated: Yes Orders Last 24hrs: Active Orders 24 hr Category Date Time Status Patient Status [ADT] Routine ADT 06/11/20 23:20 Active Antiembolic Devices [RC] PER UNIT ROUTINE Care 06/12/20 02:26 Active Blood Glucose Check, Bedside [RC] Q6HR Care 06/12/20 02:25 Active EKG Documentation Completion [RC] STAT Care 06/11/20 20:05 Active Intake and Output [RC] QSHIFT Care 06/12/20 08:05 Ordered Oxygen Therapy [RC] PRN Care 06/12/20 02:25 Active Telemetry Monitoring [Cardiac Monitoring] [RC] Q8H Care 06/11/20 23:28 Active Up ad Lucrecia [RC] ASDIRECTED Care 06/12/20 02:25 Active VTE/DVT Education [RC] PER UNIT ROUTINE Care 06/12/20 02:25 Active Vital Signs [RC] Q4H Care 06/12/20 02:25 Active Nothing per Oral Now Diet [DIET] Diet 06/12/20 Breakfast Active BASIC METABOLIC PANEL,BMP [CHEM] AM Lab 06/13/20 05:11 Ordered CBC WITH AUTO DIFF [HEME] AM Lab 06/13/20 05:11 Ordered H PYLORI STOOL ANTIGEN [MREF] Urgent Lab 06/12/20 08:05 Ordered Dextrose 50% in Water Med 06/12/20 02:28 Active 50 ml IV ASDIRECTED PRN Glucagon,Human Recombinant [GlucaGen] Med 06/12/20 02:28 Active 1 mg IM ASDIRECTED PRN Insulin Aspart [NovoLOG] Med 06/12/20 02:30 Active See Protocol SUBCUT Q6H Ondansetron [Zofran] Med 06/12/20 01:49 Active 4 mg IVPUSH Q4H PRN Pantoprazole [ProTONIX IV] 40 mg Med 06/12/20 09:00 Active Sodium Chloride 0.9% [Normal Saline] 10 ml IV Q12H Promethazine [Phenergan] Med 06/12/20 02:25 Active 25 mg IM Q6H PRN Sodium Chloride 0.9% [Normal Saline] 1,000 ml Med 06/11/20 20:15 Active IV ASDIRECTED Sodium Chloride 0.9% [Normal Saline] 1,000 ml Med 06/12/20 02:30 Active IV ASDIRECTED Sodium Chloride 0.9% [Saline Flush] Med 06/12/20 08:06 Ordered 2.5 ml FLUSH ASDIRECTED PRN fentaNYL Med 06/12/20 02:27 Active 25 mcg IVPUSH Q3H PRN Saline Lock Insert [OM.PC] Routine Oth 06/12/20 08:06 Ordered Sequential Compression Device [OM.PC] Per Unit Routine Oth 06/12/20 02:25 Ordered Resuscitation Status Routine Resus Stat 06/12/20 02:25 Ordered Medication Orders Dextrose/Water (Dextrose 50% In Water) 50 ml IV ASDIRECTED PRN PRN Reason: Hypoglycemia Fentanyl (Fentanyl) 25 mcg IVPUSH Q3H PRN PRN Reason: Abdominal Pain Glucagon (Glucagen) 1 mg IM ASDIRECTED PRN PRN Reason: Hypoglycemia Sodium Chloride (Normal Saline) 1,000 mls @ 999 mls/hr IV ASDIRECTED RAMONA Last Admin: 06/11/20 20:09 Dose: 999 mls/hr Documented by: BRIGID Pantoprazole Sodium 40 mg/ (Sodium Chloride) 10 mls @ 300 mls/hr IV Q12H RAMONA Sodium Chloride (Normal Saline) 1,000 mls @ 125 mls/hr IV ASDIRECTED RAMONA Last Admin: 06/12/20 02:56 Dose: 125 mls/hr Documented by: VENKAT Insulin Aspart (Novolog) 0 unit SUBCUT Q6H RAMONA; Protocol Last Admin: 06/12/20 03:08 Dose: 2 units Documented by: DOROTHY Ondansetron HCl (Zofran) 4 mg IVPUSH Q4H PRN PRN Reason: Nausea/Vomiting Last Admin: 06/12/20 02:01 Dose: 4 mg Documented by: DOROTHY Promethazine HCl (Phenergan) 25 mg IM Q6H PRN PRN Reason: nausea Sodium Chloride (Saline Flush) 2.5 ml FLUSH ASDIRECTED PRN PRN Reason: Keep Vein Open Assessment/Plan Comment:: This 50 year old female admitted with upper GI bleeding, possible gastritis or PUD 1. Acute Upper GI bleeding: - Continue Protinix 40 mg IV BID - Bowel rest, NPO - IVFs for now - Hgb 12.5 overnight, with IVFs. - No increase in vomiting overnight, pain stable. - Hemoccult pending, but very little stool in rectal vault - Consult Dr Mederos for possible EGD today, appreciate his assistance. 2. HTN: - Elevated overnight, but has improved. - Monitor and restart Lisinopril when no longer NPO 3. DM Type 2: - BS elevated - Continue monitoring every 6 hours while NPO - SSI - Continue Lantus at half her normal dose, 15 units at bedtime 4. Chronic pain - On Naltrexone, get restarted as soon as no longer NPO VTE prophylaxis: SCDs due to acute bleeding Dispo: 1-2 days pending improvement.
[2020-06-12] MEDS: Pantoprazole 40 MG in Sodium Chloride 0.9% 10 ML IV SCH ×2 (09:14→20:55)
--- NOTE | 2020-06-12 11:35 | PCM.PREANE ---
Preanesthetic Assessment - Anesthesia/Transfusion/Family Hx Anesthesia History: Prior Anesthesia Without Reaction Family History of Anesthesia Reaction: No Transfusion History: Prior Transfusion Without Reaction - Review of Systems General: No Symptoms Pulmonary: No Symptoms Cardiovascular: No Symptoms Gastrointestinal: Abdominal Pain Neurological: No Symptoms Other: Reports: None - Physical Assessment NPO Status Date: 06/11/20 Vital Signs: Last Vital Signs Temp 98.3 F 06/12/20 10:00 Pulse 82 06/12/20 10:00 Resp 16 06/12/20 10:00 BP 114/75 06/12/20 10:00 Pulse Ox 98 06/12/20 10:00 Height: 5 ft 7 in Weight: 81.601 kg ASA Class: 2 Mental Status: Alert & Oriented x3 Airway Class: Mallampati = 2 Dentition: Reports: Normal Dentition (mandibular), Edentulous (maxilla) ROM/Head Extension: Full Lungs: Clear to Auscultation, Normal Respiratory Effort Cardiovascular: Regular Rate, Regular Rhythm - Lab Values: Laboratory Last Values WBC 7.93 K/uL (4.0-11.0) 06/12/20 05:45 RBC 4.23 M/uL (4.30-5.90) L 06/12/20 05:45 Hgb 12.5 g/dL (12.0-16.0) 06/12/20 05:45 Hct 39.4 % (36.0-46.0) 06/12/20 05:45 MCV 93.1 fL (80.0-98.0) 06/12/20 05:45 MCH 29.6 pg (27.0-32.0) 06/12/20 05:45 MCHC 31.7 g/dL (31.0-37.0) 06/12/20 05:45 RDW Std Deviation 42.0 fl (28.0-62.0) 06/12/20 05:45 RDW Coeff of Tanesha 13 % (11.0-15.0) 06/12/20 05:45 Plt Count 271 K/uL (150-400) 06/12/20 05:45 MPV 10.20 fL (7.40-12.00) 06/12/20 05:45 Neut % (Auto) 76.7 % (48.0-80.0) 06/12/20 05:45 Lymph % (Auto) 17.8 % (16.0-40.0) 06/12/20 05:45 [place] % (Auto) 5.4 % (0.0-15.0) 06/12/20 05:45 Eos % (Auto) 0.0 % (0.0-7.0) 06/12/20 05:45 Baso % (Auto) 0.1 % (0.0-1.5) 06/12/20 05:45 Neut # (Auto) 6.1 K/uL (1.4-5.7) H 06/12/20 05:45 Lymph # (Auto) 1.4 K/uL (0.6-2.4) 06/12/20 05:45 [place] # (Auto) 0.4 K/uL (0.0-0.8) 06/12/20 05:45 Eos # (Auto) 0.0 K/uL (0.0-0.7) 06/12/20 05:45 Baso # (Auto) 0.0 K/uL (0.0-0.1) 06/12/20 05:45 Nucleated RBC % 0.0 /100WBC 06/12/20 05:45 Nucleated RBCs # 0 K/uL 06/12/20 05:45 INR 1.02 06/11/20 19:57 Sodium 139 mmol/L (136-145) 06/12/20 05:45 Potassium 3.6 mmol/L (3.5-5.1) 06/12/20 05:45 Chloride 104 mmol/L (98-107) 06/12/20 05:45 Carbon Dioxide 24.7 mmol/L (21.0-32.0) 06/12/20 05:45 BUN 9 mg/dL (7.0-18.0) 06/12/20 05:45 Creatinine 0.7 mg/dL (0.6-1.0) 06/12/20 05:45 Est Cr Clr Drug Dosing 95.58 mL/min 06/12/20 05:45 Estimated GFR (MDRD) > 60.0 ml/min 06/12/20 05:45 Glucose 209 mg/dL (74-106) H 06/12/20 05:45 POC Glucose 161 mg/dL (60-110) H 06/12/20 09:10 Calcium 8.1 mg/dL (8.5-10.1) L 06/12/20 05:45 Total Bilirubin 0.7 mg/dL (0.2-1.0) 06/12/20 05:45 AST 10 IU/L (15-37) L 06/12/20 05:45 ALT 35 IU/L (14-63) 06/12/20 05:45 Alkaline Phosphatase 86 U/L (46-116) 06/12/20 05:45 Troponin I < 0.050 ng/mL (0.000-0.056) 06/11/20 19:57 Total Protein 6.7 g/dL (6.4-8.2) 06/12/20 05:45 Albumin 3.4 g/dL (3.4-5.0) 06/12/20 05:45 Globulin 3.3 g/dL (2.6-4.0) 06/12/20 05:45 Albumin/Globulin Ratio 1.0 (0.9-1.6) 06/12/20 05:45 Lipase 142 U/L (73-393) 06/11/20 19:57 Urine Color YELLOW 06/11/20 23:33 Urine Appearance CLEAR 06/11/20 23:33 Urine pH 7.5 (5.0-8.0) 06/11/20 23:33 Ur Specific [place] 1.010 (1.001-1.035) 06/11/20 23:33 Urine Protein NEGATIVE mg/dL (NEGATIVE) 06/11/20 23:33 Urine Glucose (UA) 500 mg/dL (NEGATIVE) H 06/11/20 23:33 Urine Ketones 40 mg/dL (NEGATIVE) H 06/11/20 23:33 Urine Occult Blood NEGATIVE (NEGATIVE) 06/11/20 23:33 Urine Nitrite NEGATIVE (NEGATIVE) 06/11/20 23:33 Urine Bilirubin NEGATIVE (NEGATIVE) 06/11/20 23:33 Urine Urobilinogen 0.2 EU/dL (<2.0) 06/11/20 23:33 Ur Leukocyte Esterase NEGATIVE (NEGATIVE) 06/11/20 23:33 SARS-CoV-2 RNA (HOWIE) NEGATIVE (NEGATIVE) 06/11/20 20:29 Blood Type O POSITIVE 06/11/20 19:57 - Allergies Allergies/Adverse Reactions: Allergies Allergy/AdvReac Type Severity Reaction Status Date / Time hydromorphone [From Dilaudid] Allergy Chest Verified 06/12/20 00:31 Tightness morphine Allergy Chest Verified 06/12/20 00:31 Tightness Sulfa (Sulfonamide Allergy Airway Verified 06/12/20 00:31 Antibiotics) Tightness Tetracyclines Allergy Anaphylactic Verified 06/12/20 00:31 Shock - Blood Blood Available: No - Anesthesia Plan Pre-Op Medication Ordered: None - Acknowledgements Anesthesia Type Planned: General Anesthesia (tiva) Pt an Appropriate Candidate for the Planned Anesthesia: Yes Alternatives and Risks of Anesthesia Discussed w Pt/Guardian: Yes Pt/Guardian Understands and Agrees with Anesthesia Plan: Yes Additional Comments: PMH: htn, dm2, chronic back pain, anxiety/depression/PTSD, ADHD, CT scan showing thicking of gastric antrum-ulcer? 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 Endocrine/Metabolic History: Reports: Diabetes, Type II Hematologic History: Reports: Anemia Immunologic History: Reports: None Oncologic (Cancer) History: Reports: None Dermatologic History: Reports: None - Infectious Disease History Infectious Disease History: Reports: Chicken Pox - Past Surgical History Head Surgeries/Procedures: Reports: None HEENT Surgical History: Reports: Tonsillectomy Cardiovascular Surgical History: Reports: None Respiratory Surgical History: Reports: None GI Surgical History: Reports: Bariatric Procedure, Cholecystectomy Female Surgical History: Reports: Section Neurological Surgical History: Reports: Laminectomy Musculoskeletal Surgical History: Reports: None Oncologic Surgical History: Reports: None - SUBSTANCE USE Tobacco Use Status *Q: Never Tobacco User Second Hand Smoke Exposure: No Recreational Drug Use History: No - HOME MEDS Home Medications: Home Meds LORazepam 0.5 mg PO ASDIRECTED PRN 03/19/17 [History] Lisinopril 20 mg PO DAILY 03/19/17 [History] metFORMIN HCl [Metformin HCl] 1,000 mg PO BIDMEALS 03/19/17 [History] Potassium Chloride 20 meq PO DAILY 03/20/17 [History] atorvaSTATin Calcium [Atorvastatin Calcium] 20 mg PO DAILY 03/20/17 [History] DULoxetine [Cymbalta] 60 mg PO DAILY 06/09/20 [History] Naltrexone 9 mg PO TID 06/09/20 [History] Ondansetron [Zofran] 4 mg BUCCAL Q6H PRN #6 tab 06/09/20 [Rx] Omeprazole 20 mg PO DAILY 06/12/20 [History] - CURRENT (IN HOUSE) MEDS Current Meds: Current Medications Dextrose/Water (Dextrose 50% In Water) 50 ml IV ASDIRECTED PRN PRN Reason: Hypoglycemia Fentanyl (Fentanyl) 25 mcg IVPUSH Q3H PRN PRN Reason: Abdominal Pain Glucagon (Glucagen) 1 mg IM ASDIRECTED PRN PRN Reason: Hypoglycemia Sodium Chloride (Normal Saline) 1,000 mls @ 999 mls/hr IV ASDIRECTED [facility] Last Admin: 06/11/20 20:09 Dose: 999 mls/hr Documented by: Pantoprazole Sodium 40 mg/ (Sodium Chloride) 10 mls @ 300 mls/hr IV Q12H [facility] Last Admin: 06/12/20 09:14 Dose: 300 mls/hr Documented by: Sodium Chloride (Normal Saline) 1,000 mls @ 125 mls/hr IV ASDIRECTED [facility] Last Admin: 06/12/20 02:56 Dose: 125 mls/hr Documented by: Insulin Aspart (Novolog) 0 unit SUBCUT Q6H [facility]; Protocol Last Admin: 06/12/20 09:14 Dose: 1 units Documented by: Ondansetron HCl (Zofran) 4 mg IVPUSH Q4H PRN PRN Reason: Nausea/Vomiting Last Admin: 06/12/20 02:01 Dose: 4 mg Documented by: Promethazine HCl (Phenergan) 25 mg IM Q6H PRN PRN Reason: nausea Sodium Chloride (Saline Flush) 2.5 ml FLUSH ASDIRECTED PRN PRN Reason: Keep Vein Open Discontinued Medications Fentanyl (Fentanyl) 50 mcg IVPUSH ONETIME ONE Stop: 06/11/20 21:03 Last Admin: 06/11/20 21:19 Dose: 50 mcg Documented by: Fentanyl (Fentanyl) 50 mcg IVPUSH ONETIME ONE Stop: 06/11/20 23:20 Last Admin: 06/11/20 23:39 Dose: 50 mcg Documented by: Pantoprazole Sodium 80 mg/ (Sodium Chloride) 20 mls @ 420 mls/hr IVPUSH ONETIME ONE Stop: 06/11/20 21:39 Last Admin: 06/11/20 22:25 Dose: 420 mls/hr Documented by: Iopamidol (Isovue Multipack-370 (76%)) 100 ml IVPUSH ONETIME STA Stop: 06/11/20 22:27 Last Admin: 06/11/20 22:27 Dose: 100 ml Documented by: Metoclopramide HCl (Reglan) 10 mg IVPUSH ONETIME ONE Stop: 06/11/20 20:56 Last Admin: 06/11/20 21:19 Dose: 10 mg Documented by: Ondansetron HCl (Zofran) 4 mg IVPUSH ONETIME ONE Stop: 06/11/20 20:09 Last Admin: 06/11/20 20:22 Dose: 4 mg Documented by: Ondansetron HCl (Zofran) 4 mg IVPUSH ONETIME ONE Stop: 06/11/20 20:55 Last Admin: 06/11/20 21:19 Dose: 4 mg Documented by: Ondansetron HCl (Zofran) 4 mg IVPUSH ONETIME ONE Stop: 06/11/20 23:20 Last Admin: 06/12/20 00:03 Dose: Not Given Documented by: Sodium Chloride (Saline Flush) 10 ml FLUSH ASDIRECTED PRN PRN Reason: Keep Vein Open Last Admin: 06/11/20 20:23 Dose: 10 ml Documented by: Sodium Chloride (Saline Flush) 2.5 ml FLUSH ASDIRECTED PRN PRN Reason: Keep Vein Open Last Admin: 06/11/20 20:23 Dose: 2.5 ml Documented by:
[2020-06-12] MEDS ORDERED: Propofol 200 MG/20 ML SDV ONE (11:44)
--- NOTE | 2020-06-12 11:48 | PCM.CONS ---
H&P History of Present Illness - General Date of Service: 06/12/20 Admit Problem/Dx: Admission Diagnosis/Problem Admission Diagnosis/Problem GI bleed not requiring more than 4 units of blood in 24 hours, ICU, or surgery Coffee-ground emesis Source of Information: Patient History Limitations: Reports: No Limitations - History of Present Illness Initial Comments - Free Text/Narative: Patient is a 50-year-old female who was admitted via the emergency room yesterday with coffee-ground emesis and epigastric pain. She had a similar episode about 2 weeks ago and was started on PPIs. This did not sit well, and she discontinued that medication. She then developed more abdominal pain, nausea and vomiting yesterday to the point of coffee-ground emesis. At that point, she sought medical attention and was admitted to the hospital. Symptom Onset Date: 06/11/20 Duration of Symptoms: Reports: Hour(s): Location: Reports: Abdomen Quality: Reports: Burning Severity: Moderate Improves with: Reports: None Worsens with: Reports: None Associated Symptoms: Reports: Nausea/Vomiting abdomen Pain Score (Numeric/FACES): 7 - Related Data Allergies/Adverse Reactions: Allergies Allergy/AdvReac Type Severity Reaction Status Date / Time hydromorphone [From Dilaudid] Allergy Chest Verified 06/12/20 00:31 Tightness morphine Allergy Chest Verified 06/12/20 00:31 Tightness Sulfa (Sulfonamide Allergy Airway Verified 06/12/20 00:31 Antibiotics) Tightness Tetracyclines Allergy Anaphylactic Verified 06/12/20 00:31 Shock Home Medications: Home Meds LORazepam 0.5 mg PO ASDIRECTED PRN 03/19/17 [History] Lisinopril 20 mg PO DAILY 03/19/17 [History] metFORMIN HCl [Metformin HCl] 1,000 mg PO BIDMEALS 03/19/17 [History] Potassium Chloride 20 meq PO DAILY 03/20/17 [History] atorvaSTATin Calcium [Atorvastatin Calcium] 20 mg PO DAILY 03/20/17 [History] DULoxetine [Cymbalta] 60 mg PO DAILY 06/09/20 [History] Naltrexone 9 mg PO TID 06/09/20 [History] Ondansetron [Zofran] 4 mg BUCCAL Q6H PRN #6 tab 06/09/20 [Rx] Omeprazole 20 mg PO DAILY 06/12/20 [History] Past Medical History Other HEENT History: wears glasses Cardiovascular History: Reports: Hypertension Respiratory History: Reports: None Gastrointestinal History: Reports: GERD Genitourinary History: Reports: None 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 Endocrine/Metabolic History: Reports: Diabetes, Type II Hematologic History: Reports: Anemia Immunologic History: Reports: None Oncologic (Cancer) History: Reports: None Dermatologic History: Reports: None - Infectious Disease History Infectious Disease History: Reports: Chicken Pox - Past Surgical History Head Surgeries/Procedures: Reports: None HEENT Surgical History: Reports: Tonsillectomy Cardiovascular Surgical History: Reports: None Respiratory Surgical History: Reports: None GI Surgical History: Reports: Bariatric Procedure, Cholecystectomy Female Surgical History: Reports: Section Neurological Surgical History: Reports: Laminectomy Musculoskeletal Surgical History: Reports: None Oncologic Surgical History: Reports: None Social & Family History - Family History Family Medical History: Noncontributory Respiratory: Reports: Other (See Below) (black lung and cancer, father) Oncologic: Reports: Bladder, Lung - Tobacco Use Tobacco Use Status *Q: Never Tobacco User Second Hand Smoke Exposure: No - Caffeine Use Caffeine Use: Reports: None - Recreational Drug Use Recreational Drug Use: No - Living Situation & Occupation Living situation: Reports: Occupation: Employed H&P Review of Systems - Review of Systems: Review Of Systems: See Below General: Reports: Decreased Appetite. Denies: Fever, Chills HEENT: Reports: No Symptoms Pulmonary: Denies: Shortness of Breath, Wheezing Cardiovascular: Denies: Chest Pain Gastrointestinal: Reports: Abdominal Pain, Anorexia, Decreased Appetite, Hematemesis, Nausea, Vomiting Genitourinary: Reports: No Symptoms Musculoskeletal: Reports: No Symptoms Skin: Reports: No Symptoms Psychiatric: Reports: No Symptoms Neurological: Reports: No Symptoms Hematologic/Lymphatic: Reports: No Symptoms Immunologic: Reports: No Symptoms Exam - Exam Exam: See Below - Vital Signs Vital Signs: Last Vital Signs Temp 98.3 F 06/12/20 10:00 Pulse 82 06/12/20 10:00 Resp 16 06/12/20 10:00 BP 114/75 06/12/20 10:00 Pulse Ox 98 06/12/20 10:00 Weight: 179 lb 14.4 oz - Exam General: Alert, Oriented, Cooperative, Mild Distress HEENT: Conjunctiva Clear, Pupils Equal, Pupils Reactive. No: Scleral Icterus Neck: Supple, Trachea Midline Lungs: Clear to Auscultation, Normal Respiratory Effort Cardiovascular: Regular Rate, Regular Rhythm. No: Tachycardia GI/Abdominal Exam: Normal Bowel Sounds, Soft, Tender (Epigastrium) (Female) Exam: Deferred Rectal (Female) Exam: Deferred Back Exam: Normal Inspection Extremities: Normal Inspection Skin: Warm, Dry, Intact Neurological: Cranial Nerves Intact Psychiatric: Alert, Normal Affect, Normal Mood - Patient Data Lab Results Last 24 hrs: Laboratory Results - last 24 hr 06/11/20 06/11/20 06/11/20 Range/Units 19:57 19:57 19:57 WBC 7.11 (4.0-11.0) K/uL RBC 4.71 (4.30-5.90) M/uL Hgb 14.3 (12.0-16.0) g/dL Hct 43.5 (36.0-46.0) % MCV 92.4 (80.0-98.0) fL MCH 30.4 (27.0-32.0) pg MCHC 32.9 (31.0-37.0) g/dL RDW Std Deviation 41.8 (28.0-62.0) fl RDW Coeff of Tanesha 12 (11.0-15.0) % Plt Count 300 (150-400) K/uL MPV 10.30 (7.40-12.00) fL Neut % (Auto) 80.1 H (48.0-80.0) % Lymph % (Auto) 17.3 (16.0-40.0) % [place] % (Auto) 2.4 (0.0-15.0) % Eos % (Auto) 0.1 (0.0-7.0) % Baso % (Auto) 0.1 (0.0-1.5) % Neut # (Auto) 5.7 (1.4-5.7) K/uL Lymph # (Auto) 1.2 (0.6-2.4) K/uL [place] # (Auto) 0.2 (0.0-0.8) K/uL Eos # (Auto) 0.0 (0.0-0.7) K/uL Baso # (Auto) 0.0 (0.0-0.1) K/uL Nucleated RBC % 0.0 /100WBC Nucleated RBCs # 0 K/uL INR 1.02 Sodium 136 (136-145) mmol/L Potassium 3.7 (3.5-5.1) mmol/L Chloride 100 (98-107) mmol/L Carbon Dioxide 24.6 (21.0-32.0) mmol/L BUN 10 (7.0-18.0) mg/dL Creatinine 0.9 (0.6-1.0) mg/dL Est Cr Clr Drug Dosing TNP Estimated GFR (MDRD) > 60.0 ml/min Glucose 285 H (74-106) mg/dL POC Glucose (60-110) mg/dL Calcium 9.1 (8.5-10.1) mg/dL Total Bilirubin 0.8 (0.2-1.0) mg/dL AST 21 (15-37) IU/L ALT 44 (14-63) IU/L Alkaline Phosphatase 107 (46-116) U/L Troponin I < 0.050 (0.000-0.056) ng/mL Total Protein 8.0 (6.4-8.2) g/dL Albumin 4.3 (3.4-5.0) g/dL Globulin 3.7 (2.6-4.0) g/dL Albumin/Globulin Ratio 1.2 (0.9-1.6) Lipase 142 (73-393) U/L Urine Color Urine Appearance Urine pH (5.0-8.0) Ur Specific [place] (1.001-1.035) Urine Protein (NEGATIVE) mg/dL Urine Glucose (UA) (NEGATIVE) mg/dL Urine Ketones (NEGATIVE) mg/dL Urine Occult Blood (NEGATIVE) Urine Nitrite (NEGATIVE) Urine Bilirubin (NEGATIVE) Urine Urobilinogen (<2.0) EU/dL Ur Leukocyte Esterase (NEGATIVE) SARS-CoV-2 RNA (HOWIE) (NEGATIVE) Blood Type 06/11/20 06/11/20 06/11/20 Range/Units 19:57 20:03 20:29 WBC (4.0-11.0) K/uL RBC (4.30-5.90) M/uL Hgb (12.0-16.0) g/dL Hct (36.0-46.0) % MCV (80.0-98.0) fL MCH (27.0-32.0) pg MCHC (31.0-37.0) g/dL RDW Std Deviation (28.0-62.0) fl RDW Coeff of Tanesha (11.0-15.0) % Plt Count (150-400) K/uL MPV (7.40-12.00) fL Neut % (Auto) (48.0-80.0) % Lymph % (Auto) (16.0-40.0) % [place] % (Auto) (0.0-15.0) % Eos % (Auto) (0.0-7.0) % Baso % (Auto) (0.0-1.5) % Neut # (Auto) (1.4-5.7) K/uL Lymph # (Auto) (0.6-2.4) K/uL [place] # (Auto) (0.0-0.8) K/uL Eos # (Auto) (0.0-0.7) K/uL Baso # (Auto) (0.0-0.1) K/uL Nucleated RBC % /100WBC Nucleated RBCs # K/uL INR Sodium (136-145) mmol/L Potassium (3.5-5.1) mmol/L Chloride (98-107) mmol/L Carbon Dioxide (21.0-32.0) mmol/L BUN (7.0-18.0) mg/dL Creatinine (0.6-1.0) mg/dL Est Cr Clr Drug Dosing Estimated GFR (MDRD) ml/min Glucose (74-106) mg/dL POC Glucose 291 H (60-110) mg/dL Calcium (8.5-10.1) mg/dL Total Bilirubin (0.2-1.0) mg/dL AST (15-37) IU/L ALT (14-63) IU/L Alkaline Phosphatase (46-116) U/L Troponin I (0.000-0.056) ng/mL Total Protein (6.4-8.2) g/dL Albumin (3.4-5.0) g/dL Globulin (2.6-4.0) g/dL Albumin/Globulin Ratio (0.9-1.6) Lipase (73-393) U/L Urine Color Urine Appearance Urine pH (5.0-8.0) Ur Specific [place] (1.001-1.035) Urine Protein (NEGATIVE) mg/dL Urine Glucose (UA) (NEGATIVE) mg/dL Urine Ketones (NEGATIVE) mg/dL Urine Occult Blood (NEGATIVE) Urine Nitrite (NEGATIVE) Urine Bilirubin (NEGATIVE) Urine Urobilinogen (<2.0) EU/dL Ur Leukocyte Esterase (NEGATIVE) SARS-CoV-2 RNA (HOWIE) NEGATIVE (NEGATIVE) Blood Type O POSITIVE 06/11/20 06/12/20 06/12/20 Range/Units 23:33 02:57 05:45 WBC 7.93 (4.0-11.0) K/uL RBC 4.23 L (4.30-5.90) M/uL Hgb 12.5 (12.0-16.0) g/dL Hct 39.4 (36.0-46.0) % MCV 93.1 (80.0-98.0) fL MCH 29.6 (27.0-32.0) pg MCHC 31.7 (31.0-37.0) g/dL RDW Std Deviation 42.0 (28.0-62.0) fl RDW Coeff of Tanesha 13 (11.0-15.0) % Plt Count 271 (150-400) K/uL MPV 10.20 (7.40-12.00) fL Neut % (Auto) 76.7 (48.0-80.0) % Lymph % (Auto) 17.8 (16.0-40.0) % [place] % (Auto) 5.4 (0.0-15.0) % Eos % (Auto) 0.0 (0.0-7.0) % Baso % (Auto) 0.1 (0.0-1.5) % Neut # (Auto) 6.1 H (1.4-5.7) K/uL Lymph # (Auto) 1.4 (0.6-2.4) K/uL [place] # (Auto) 0.4 (0.0-0.8) K/uL Eos # (Auto) 0.0 (0.0-0.7) K/uL Baso # (Auto) 0.0 (0.0-0.1) K/uL Nucleated RBC % 0.0 /100WBC Nucleated RBCs # 0 K/uL INR Sodium (136-145) mmol/L Potassium (3.5-5.1) mmol/L Chloride (98-107) mmol/L Carbon Dioxide (21.0-32.0) mmol/L BUN (7.0-18.0) mg/dL Creatinine (0.6-1.0) mg/dL Est Cr Clr Drug Dosing Estimated GFR (MDRD) ml/min Glucose (74-106) mg/dL POC Glucose 203 H (60-110) mg/dL Calcium (8.5-10.1) mg/dL Total Bilirubin (0.2-1.0) mg/dL AST (15-37) IU/L ALT (14-63) IU/L Alkaline Phosphatase (46-116) U/L Troponin I (0.000-0.056) ng/mL Total Protein (6.4-8.2) g/dL Albumin (3.4-5.0) g/dL Globulin (2.6-4.0) g/dL Albumin/Globulin Ratio (0.9-1.6) Lipase (73-393) U/L Urine Color YELLOW Urine Appearance CLEAR Urine pH 7.5 (5.0-8.0) Ur Specific [place] 1.010 (1.001-1.035) Urine Protein NEGATIVE (NEGATIVE) mg/dL Urine Glucose (UA) 500 H (NEGATIVE) mg/dL Urine Ketones 40 H (NEGATIVE) mg/dL Urine Occult Blood NEGATIVE (NEGATIVE) Urine Nitrite NEGATIVE (NEGATIVE) Urine Bilirubin NEGATIVE (NEGATIVE) Urine Urobilinogen 0.2 (<2.0) EU/dL Ur Leukocyte Esterase NEGATIVE (NEGATIVE) SARS-CoV-2 RNA (HOWIE) (NEGATIVE) Blood Type 06/12/20 06/12/20 Range/Units 05:45 09:10 WBC (4.0-11.0) K/uL RBC (4.30-5.90) M/uL Hgb (12.0-16.0) g/dL Hct (36.0-46.0) % MCV (80.0-98.0) fL MCH (27.0-32.0) pg MCHC (31.0-37.0) g/dL RDW Std Deviation (28.0-62.0) fl RDW Coeff of Tanesha (11.0-15.0) % Plt Count (150-400) K/uL MPV (7.40-12.00) fL Neut % (Auto) (48.0-80.0) % Lymph % (Auto) (16.0-40.0) % [place] % (Auto) (0.0-15.0) % Eos % (Auto) (0.0-7.0) % Baso % (Auto) (0.0-1.5) % Neut # (Auto) (1.4-5.7) K/uL Lymph # (Auto) (0.6-2.4) K/uL [place] # (Auto) (0.0-0.8) K/uL Eos # (Auto) (0.0-0.7) K/uL Baso # (Auto) (0.0-0.1) K/uL Nucleated RBC % /100WBC Nucleated RBCs # K/uL INR Sodium 139 (136-145) mmol/L Potassium 3.6 (3.5-5.1) mmol/L Chloride 104 (98-107) mmol/L Carbon Dioxide 24.7 (21.0-32.0) mmol/L BUN 9 (7.0-18.0) mg/dL Creatinine 0.7 (0.6-1.0) mg/dL Est Cr Clr Drug Dosing 95.58 Estimated GFR (MDRD) > 60.0 ml/min Glucose 209 H (74-106) mg/dL POC Glucose 161 H (60-110) mg/dL Calcium 8.1 L (8.5-10.1) mg/dL Total Bilirubin 0.7 (0.2-1.0) mg/dL AST 10 L (15-37) IU/L ALT 35 (14-63) IU/L Alkaline Phosphatase 86 (46-116) U/L Troponin I (0.000-0.056) ng/mL Total Protein 6.7 (6.4-8.2) g/dL Albumin 3.4 (3.4-5.0) g/dL Globulin 3.3 (2.6-4.0) g/dL Albumin/Globulin Ratio 1.0 (0.9-1.6) Lipase (73-393) U/L Urine Color Urine Appearance Urine pH (5.0-8.0) Ur Specific [place] (1.001-1.035) Urine Protein (NEGATIVE) mg/dL Urine Glucose (UA) (NEGATIVE) mg/dL Urine Ketones (NEGATIVE) mg/dL Urine Occult Blood (NEGATIVE) Urine Nitrite (NEGATIVE) Urine Bilirubin (NEGATIVE) Urine Urobilinogen (<2.0) EU/dL Ur Leukocyte Esterase (NEGATIVE) SARS-CoV-2 RNA (HOWIE) (NEGATIVE) Blood Type Result Diagrams: 06/12/20 05:45 06/12/20 05:45 Sepsis Event Note - Evaluation Sepsis Screening Result: No Definite Risk - Focused Exam Vital Signs: Vital Signs Temp Pulse Resp BP Pulse Ox 06/12/20 10:00 98.3 F 82 16 114/75 98 06/12/20 04:00 98.6 F 78 17 162/89 H 98 06/12/20 00:00 98.0 F 82 18 167/92 H 100 06/11/20 23:43 98.2 F 80 20 173/85 H 99 Consult PN Assessment/Plan Procedures: Procedures ASSAY OF FERRITIN (02/17/17) ASSAY OF FREE THYROXINE (02/17/17) ASSAY OF IRON (06/17/16) ASSAY THYROID STIM HORMONE (01/24/20) BLOOD TYPING SEROLOGIC ABO (03/20/17) BLOOD TYPING SEROLOGIC RH(D) (03/20/17) CHORIONIC GONADOTROPIN ASSAY (03/20/17) COMPLETE CBC AUTOMATED (01/24/20) COMPLETE CBC W/AUTO DIFF WBC (05/25/18) COMPREHEN METABOLIC PANEL (01/24/20) EEG AWAKE AND ASLEEP (03/30/20) GLUCOSE BLOOD TEST (03/20/17) GLYCOSYLATED HEMOGLOBIN TEST (01/24/20) INFLUENZA ASSAY W/OPTIC (11/23/19) IRON BINDING TEST (09/08/14) LIPID PANEL (02/16/19) METABOLIC PANEL TOTAL CA (03/17/20) MICROBE SUSCEPTIBLE KAVON (01/24/16) MRI BRAIN STEM W/O & W/DYE (03/20/20) MRI LUMBAR SPINE W/O DYE (02/25/19) ORGANIC ACID SINGLE QUANT (11/07/15) PROTHROMBIN TIME (02/17/17) RBC ANTIBODY SCREEN (03/20/17) ROUTINE VENIPUNCTURE (03/17/20) SARS-COV2 COVID-19 AMP PRB (11/23/19) THER/PROPH/DIAG IV INF INIT (06/20/16) THROMBOPLASTIN TIME PARTIAL (02/17/17) TISSUE EXAM BY PATHOLOGIST (02/21/17) TLH W/T/O 250 G OR LESS (03/20/17) TRANSVAGINAL US NON-OB (02/18/17) UR ALBUMIN SEMIQUANTITATIVE (08/25/19) URINALYSIS AUTO W/SCOPE (06/08/18) URINE BACTERIA CULTURE (01/24/16) URINE CULTURE/COLONY COUNT (06/08/18) VITAMIN B-12 (01/24/20) X-RAY EXAM OF FOOT (11/07/15) X-RAY EXAM OF HAND (10/05/19) X-RAY EXAM OF SHOULDER (12/16/14) (1) Epigastric pain SNOMED Code(s): 67730063 Code(s): R10.13 - EPIGASTRIC PAIN Priority: High Current Visit: Yes (2) Nausea and vomiting SNOMED Code(s): 06145451 Code(s): R11.2 - NAUSEA WITH VOMITING, UNSPECIFIED Priority: High Current Visit: Yes Qualifiers: Vomiting type: hematemesis Qualified Code(s): K92.0 - Hematemesis (3) Upper GI bleeding SNOMED Code(s): 11737005 Code(s): K92.2 - GASTROINTESTINAL HEMORRHAGE, UNSPECIFIED Priority: Medium Current Visit: Yes Problem List Initiated/Reviewed/Updated: Yes Plan: Esophagogastroduodenoscopy with biopsy. The operative procedure, along with the risks, including, but not limited to, bleeding, perforation, and the need for surgery were discussed with the patient who voices understanding, offers no questions and wishes to proceed.
[2020-06-12] MEDS ORDERED: Midazolam 1 MG/ML 2 ML SDV ONE (11:59)
[2020-06-12] MEDS ORDERED: Glycopyrrolate 0.2 MG/ML SDV ONE (11:59)
--- NOTE | 2020-06-12 12:42 | PCM.OPNOTE ---
- General Post-Op/Procedure Note Date of Surgery/Procedure: 06/12/20 Operative Procedure(s): Esophagogastroduodenoscopy with duodenal and gastric biopsies Pre Op Diagnosis: Coffee-ground emesis Post-Op Diagnosis: Chronic gastritis and duodenitis. No evidence of ulceration. Anesthesia Technique: MAC (ASA IIE) Primary Surgeon: Stas Mederos Condition: Stable Free Text/Narrative:: DICTATION [id number] CPT CODE 91371
--- NOTE | 2020-06-12 12:43 | PCM.POSTAN ---
POST ANESTHESIA ASSESSMENT - MENTAL STATUS Mental Status: Alert, Oriented - VITAL SIGNS Vital Signs: Last Vital Signs Temp 98.3 F 06/12/20 10:00 Pulse 88 06/12/20 12:39 Resp 24 H 06/12/20 12:39 BP 126/77 06/12/20 12:39 Pulse Ox 100 06/12/20 12:39 - RESPIRATORY Respiratory Status: Respiratory Rate WNL, Airway Patent, O2 Saturation Stable - CARDIOVASCULAR CV Status: Pulse Rate WNL, Blood Pressure Stable - GASTROINTESTINAL GI Status: No Symptoms - POST OP HYDRATION Hydration Status: Adequate & Stable
--- NOTE | 2020-06-12 13:13 | OR ---
SURGEON: Stas Mederos M.D. DATE OF PROCEDURE: 06/12/2020 OPERATION PERFORMED: Esophagogastroduodenoscopy with biopsy. PRIMARY SURGEON: Stas Mederos MD. ANESTHESIA: MAC. ASA CLASSIFICATION: II. PREOPERATIVE DIAGNOSIS: Coffee-ground emesis. POSTOPERATIVE DIAGNOSIS: Mild chronic gastritis. No acute ulceration. DESCRIPTION OF PROCEDURE: The patient was taken to the endoscopy room, positioned on the endoscopy table in the supine position. Time-out was called for appropriate identification patient and procedure. Monitored anesthesia care was provided. The bite block was placed between the patient's teeth. The gastroscope was inserted through the bite block and advanced without difficulty through the esophagus and stomach into the duodenum where examination was carried out in a retrograde fashion. The duodenal bulb does show some mild inflammatory changes and biopsies of this area were taken. No acute ulcerations were noted. The gastroscope was then withdrawn into the stomach, which also shows a mild chronic gastritis with no acute ulcerations. There was a little bit of coffee-ground material and blood in the stomach, but again no ulcerations were noted. The gastroscope was retroflexed to visualize the proximal stomach. No significant hiatal hernia is noted and there was no evidence of ulcer or tumor proximally. The gastroscope was then straightened and slowly withdrawn. The GE junction is sharply defined and shows no significant inflammatory changes. No ulcerations were noted. The esophagus itself demonstrated fair contractility, although tertiary contractions were noted. The vocal cords were briefly visualized as the scope was withdrawn and noted to move symmetrically. The gastroscope was then removed with the patient having tolerated the procedure well. She was taken to recovery room in satisfactory condition. BRODIE / LUIS /[id number]
[2020-06-12] MEDS ORDERED: Insulin Glargine,Human Rec. Analog 100 Units/ML 3 ML Pen SUBCUT SCH (21:00)
[2020-06-13 05:49] LABS: BLOOD UREA NITROGEN,BUN 7 mg/dL (7.0-18.0); CARBON DIOXIDE,CO2 25.3 mmol/L (21.0-32.0); CHLORIDE,CL 110 mmol/L (98-107); GLUCOSE RANDOM 129 mg/dL (74-106); POTASSIUM,K 3.2 mmol/L (3.5-5.1); SODIUM,NA 145 mmol/L (136-145)
[2020-06-13] MEDS: Sodium Chloride 0.9% 1,000 ML IV SCH (06:00)
[2020-06-13] MEDS: Insulin Aspart 100 Units/ML 3 ML Pen SUBCUT SCH ×2 (06:34→11:27)
[2020-06-13] MEDS: Pantoprazole 40 MG in Sodium Chloride 0.9% 10 ML IV SCH (09:56)
--- NOTE | 2020-06-13 10:53 | PCM.DCSUM1 ---
Discharge Summary - Hospital Course Brief History: This 50 year old female with pmh of HTN, DM type 2, episodes of pancreatitis, significant abdominal surgical history including appendectomy, cholecystectomy, total hysterectomy, and duodenal switch for weight loss presents to the ED today with complaints of abdominal pain and coffee ground emesis with mild streaking of blood. She reports this started approximately 2-3 weeks ago, she did see her PCP, who started on a PPI but she felt that didn't do much. She limited her oral intake to soft things and felt a little better, but then the pain and nausea, vomiting started again yesterday. She reports she has not tired Maalox, Gaviscon or Pepto Bismol. She reports intermittently using TUMS which takes the burning sensation away, but continues to have the sharp upper abdominal pain both L and R sided. She denies diarrhea or constipation. Denies black tarry or bloody stools. Denies history of this in the past. No NSAID use, no smoking or alcohol use. Denies recreational drug use. Reports having endoscopy approximately 12 years ago for abdominal pain, which she reports this was negative. Has family history of bladder cancer in mother and 'black lung" in her father along with lung cancer. No overt GI cancers or IBD in her family that she knows. She denies chest pain or SOB. No fevers or chills. No urinary concerns. In the ED no leukocytosis noted, hgb 14.3 BMP WNL, Blood sugars elevated 200s. UA negative. COVID swab negative. Headt CT negative. CXR negative. EKG SR with no signs of ischemic disease. VS, BP elevated since arrival [address] revealed mild wall thickening of the gastric antrum, which could be due to gastritis, peptic ulcer disease. She was given IVFs and protonix along with fentanyl PRN for pain. She will be admitted observation for possible acute upper GI bleeding. Diagnosis: Stroke: No - Discharge Data Discharge Date: 06/13/20 Discharge Disposition: Home, Self-Care 01 Condition: Stable - Referral to Home Health Primary Care Physician: INGRIS Burk - Discharge Diagnosis/Problem(s) (1) Upper GI bleeding SNOMED Code(s): 13853813 ICD Code: K92.2 - GASTROINTESTINAL HEMORRHAGE, UNSPECIFIED Status: Acute Priority: Medium Current Visit: Yes (2) HTN (hypertension) SNOMED Code(s): 43807064 ICD Code: I10 - ESSENTIAL (PRIMARY) HYPERTENSION Status: Chronic Current Visit: Yes Qualifiers: Hypertension type: essential hypertension Qualified Code(s): I10 - Essential (primary) hypertension (3) DM type 2 (diabetes mellitus, type 2) SNOMED Code(s): 89502412 ICD Code: E11.9 - TYPE 2 DIABETES MELLITUS WITHOUT COMPLICATIONS Status: Chronic Current Visit: Yes Qualifiers: Diabetes mellitus prison insulin use: with termination clerk use (4) History of hysterectomy SNOMED Code(s): 177992518, 646511953 ICD Code: Z90.710 - ACQUIRED ABSENCE OF BOTH CERVIX AND UTERUS Status: Chronic Current Visit: Yes (5) Hx of appendectomy SNOMED Code(s): 250180752 ICD Code: Z90.49 - ACQUIRED ABSENCE OF OTHER SPECIFIED PARTS OF DIGESTIVE TRACT Status: Chronic Current Visit: Yes (6) Hx of cholecystectomy SNOMED Code(s): 509455342, 055373218 ICD Code: Z90.49 - ACQUIRED ABSENCE OF OTHER SPECIFIED PARTS OF DIGESTIVE TRACT Status: Chronic Current Visit: Yes - Patient Summary/Data Operative Procedure(s) Performed: Esophagogastroduodenoscopy with duodenal and gastric biopsies Consults: Consultations 06/12/20 11:03 Consult to Physician [CONS] Routine Hospital Course: Admitting Diagnoses: Abdominal pain Upp GI bleeding Discharge Diagnoses: Abdominal pain Upp GI bleeding Taylor was admitted secondary to abdominal pain and hematemesis. She was placed on bowel rest, IVFs and BID PPI IV. She improved and hgb removed stable. Dr Richmond was consulted for possible EGD. EGD was completed which showed mild chronic gastritis. Today she is tolerating soft diet and is eager to go home. She will continue PPI BID for 2 weeks then decrease to once daily then off, 1 m onth total. She was notified of risk and side effects of PPI, which she verbally understood. She is to monitor symptoms and if they return she is to come back to ED or speak with Dr Richmond's clinic. She is to refrain from NSAID use. She is to return to ED or clinic if concerns should arise. Follow up was scheduled. - Patient Instructions Diet: Regular Diet as Tolerated Activity: As Tolerated, No Strenuous Activities Showering/Bathing: May Shower Notify Provider of: Fever, Increased Pain, Swelling and Redness, Drainage, Nausea and/or Vomiting Other/Special Instructions: Do not take any NSAIDs, (Aleve, Ibuprofen, Advil, Motrin) - Discharge Plan *PRESCRIPTION DRUG MONITORING PROGRAM REVIEWED*: Not Applicable *COPY OF PRESCRIPTION DRUG MONITORING REPORT IN PATIENT ANG: Not Applicable Prescriptions/Med Rec: Pantoprazole Sodium [Protonix] 40 mg PO BID #60 tablet. Home Medications: Home Meds LORazepam 0.5 mg PO ASDIRECTED PRN 03/19/17 [History] Lisinopril 20 mg PO DAILY 03/19/17 [History] metFORMIN HCl [Metformin HCl] 1,000 mg PO BIDMEALS 03/19/17 [History] Potassium Chloride 20 meq PO DAILY 03/20/17 [History] atorvaSTATin Calcium [Atorvastatin Calcium] 20 mg PO DAILY 03/20/17 [History] DULoxetine [Cymbalta] 60 mg PO DAILY 06/09/20 [History] Naltrexone 9 mg PO TID 06/09/20 [History] Ondansetron [Zofran] 4 mg BUCCAL Q6H PRN #6 tab 06/09/20 [Rx] Cyanocobalamin/FA/Pyridoxine [Folbic] 1 tab PO BID 06/12/20 [History] Insulin Glarg,Human.Rec.Analog [Lantus Solostar] 30 units SUBCUT DAILY 06/12/20 [History] Pantoprazole Sodium [Protonix] 40 mg PO BID #60 tablet. 06/13/20 [Rx] Oxygen Therapy Mode: Room Air Patient Handouts: Gastritis, Adult, [id number], Upper Gastrointestinal Bleeding, Gastrointestinal Bleeding, [id number] Referrals: Sofia Black PA [Primary Care Provider] - 06/20/20 10:30 am - Discharge Summary/Plan Comment DC Time >30 min.: No - Patient Data Vitals - Most Recent: Last Vital Signs Temp 97.3 F 06/13/20 06:58 Pulse 68 06/13/20 06:58 Resp 14 06/13/20 06:58 BP 119/70 06/13/20 06:58 Pulse Ox 97 06/13/20 06:58 Weight - Most Recent: 81.601 kg I&O - Last 24 hours: Intake & Output 06/12/20 06/13/20 06/13/20 22:59 06:59 14:59 Intake Total 0 600 510 Output Total 900 1200 Balance -900 -600 510 Lab Results - Last 24 hrs: Laboratory Results - last 24 hr 06/12/20 06/12/20 06/12/20 Range/Units 14:46 17:35 20:51 WBC (4.0-11.0) K/uL RBC (4.30-5.90) M/uL Hgb (12.0-16.0) g/dL Hct (36.0-46.0) % MCV (80.0-98.0) fL MCH (27.0-32.0) pg MCHC (31.0-37.0) g/dL RDW Std Deviation (28.0-62.0) fl RDW Coeff of Tanesha (11.0-15.0) % Plt Count (150-400) K/uL MPV (7.40-12.00) fL Neut % (Auto) (48.0-80.0) % Lymph % (Auto) (16.0-40.0) % [place] % (Auto) (0.0-15.0) % Eos % (Auto) (0.0-7.0) % Baso % (Auto) (0.0-1.5) % Neut # (Auto) (1.4-5.7) K/uL Lymph # (Auto) (0.6-2.4) K/uL [place] # (Auto) (0.0-0.8) K/uL Eos # (Auto) (0.0-0.7) K/uL Baso # (Auto) (0.0-0.1) K/uL Nucleated RBC % /100WBC Nucleated RBCs # K/uL Sodium (136-145) mmol/L Potassium (3.5-5.1) mmol/L Chloride (98-107) mmol/L Carbon Dioxide (21.0-32.0) mmol/L BUN (7.0-18.0) mg/dL Creatinine (0.6-1.0) mg/dL Est Cr Clr Drug Dosing mL/min Estimated GFR (MDRD) ml/min Glucose (74-106) mg/dL POC Glucose 120 H 120 H 158 H (60-110) mg/dL Calcium (8.5-10.1) mg/dL 06/13/20 06/13/20 06/13/20 Range/Units 04:50 04:50 06:25 WBC 6.47 (4.0-11.0) K/uL RBC 3.81 L (4.30-5.90) M/uL Hgb 11.3 L (12.0-16.0) g/dL Hct 35.2 L (36.0-46.0) % MCV 92.4 (80.0-98.0) fL MCH 29.7 (27.0-32.0) pg MCHC 32.1 (31.0-37.0) g/dL RDW Std Deviation 42.5 (28.0-62.0) fl RDW Coeff of Tanesha 13 (11.0-15.0) % Plt Count 242 (150-400) K/uL MPV 10.00 (7.40-12.00) fL Neut % (Auto) 43.8 L (48.0-80.0) % Lymph % (Auto) 48.2 H (16.0-40.0) % [place] % (Auto) 6.6 (0.0-15.0) % Eos % (Auto) 1.1 (0.0-7.0) % Baso % (Auto) 0.3 (0.0-1.5) % Neut # (Auto) 2.8 (1.4-5.7) K/uL Lymph # (Auto) 3.1 H (0.6-2.4) K/uL [place] # (Auto) 0.4 (0.0-0.8) K/uL Eos # (Auto) 0.1 (0.0-0.7) K/uL Baso # (Auto) 0.0 (0.0-0.1) K/uL Nucleated RBC % 0.0 /100WBC Nucleated RBCs # 0 K/uL Sodium 145 (136-145) mmol/L Potassium 3.2 L (3.5-5.1) mmol/L Chloride 110 H (98-107) mmol/L Carbon Dioxide 25.3 (21.0-32.0) mmol/L BUN 7 (7.0-18.0) mg/dL Creatinine 0.7 (0.6-1.0) mg/dL Est Cr Clr Drug Dosing 95.58 mL/min Estimated GFR (MDRD) > 60.0 ml/min Glucose 129 H (74-106) mg/dL POC Glucose 125 H (60-110) mg/dL Calcium 7.9 L (8.5-10.1) mg/dL [facility] Results - Last 24 hrs: Microbiology 06/12/20 10:50 Stool Occult Blood ([facility]) - Final Stool / Feces Med Orders - Current: Current Medications Dextrose/Water (Dextrose 50% In Water) 50 ml IV ASDIRECTED PRN PRN Reason: Hypoglycemia Fentanyl (Fentanyl) 25 mcg IVPUSH Q3H PRN PRN Reason: Abdominal Pain Glucagon (Glucagen) 1 mg IM ASDIRECTED PRN PRN Reason: Hypoglycemia Pantoprazole Sodium 40 mg/ (Sodium Chloride) 10 mls @ 300 mls/hr IV Q12H [facility] Last Admin: 06/13/20 09:56 Dose: 300 mls/hr Documented by: Insulin Aspart (Novolog) 0 unit SUBCUT TIDAC [facility]; Protocol Last Admin: 06/13/20 06:34 Dose: Not Given Documented by: Insulin Glargine (Lantus Solostar) 15 units SUBCUT BEDTIME [facility] Last Admin: 06/12/20 20:53 Dose: 15 units Documented by: Ondansetron HCl (Zofran) 4 mg IVPUSH Q4H PRN PRN Reason: Nausea/Vomiting Last Admin: 06/12/20 02:01 Dose: 4 mg Documented by: Promethazine HCl (Phenergan) 25 mg IM Q6H PRN PRN Reason: nausea Sodium Chloride (Saline Flush) 2.5 ml FLUSH ASDIRECTED PRN PRN Reason: Keep Vein Open Discontinued Medications Fentanyl (Fentanyl) 50 mcg IVPUSH ONETIME ONE Stop: 06/11/20 21:03 Last Admin: 06/11/20 21:19 Dose: 50 mcg Documented by: Fentanyl (Fentanyl) 50 mcg IVPUSH ONETIME ONE Stop: 06/11/20 23:20 Last Admin: 06/11/20 23:39 Dose: 50 mcg Documented by: Glycopyrrolate (Robinul) Confirm Administered Dose 0.2 mg .ROUTE .STK-MED ONE Stop: 06/12/20 12:00 Sodium Chloride (Normal Saline) 1,000 mls @ 999 mls/hr IV ASDIRECTED [facility] Last Admin: 06/11/20 20:09 Dose: 999 mls/hr Documented by: Pantoprazole Sodium 80 mg/ (Sodium Chloride) 20 mls @ 420 mls/hr IVPUSH ONETIME ONE Stop: 06/11/20 21:39 Last Admin: 06/11/20 22:25 Dose: 420 mls/hr Documented by: Sodium Chloride (Normal Saline) 1,000 mls @ 125 mls/hr IV ASDIRECTED [facility] Last Admin: 06/13/20 06:00 Dose: 125 mls/hr Documented by: Insulin Aspart (Novolog) 0 unit SUBCUT Q6H [facility]; Protocol Last Admin: 06/12/20 19:39 Dose: Not Given Documented by: Iopamidol (Isovue Multipack-370 (76%)) 100 ml IVPUSH ONETIME STA Stop: 06/11/20 22:27 Last Admin: 06/11/20 22:27 Dose: 100 ml Documented by: Metoclopramide HCl (Reglan) 10 mg IVPUSH ONETIME ONE Stop: 06/11/20 20:56 Last Admin: 06/11/20 21:19 Dose: 10 mg Documented by: Midazolam HCl (Versed 1 Mg/Ml) Confirm Administered Dose 2 mg .ROUTE .STK-MED ONE Stop: 06/12/20 12:00 Ondansetron HCl (Zofran) 4 mg IVPUSH ONETIME ONE Stop: 06/11/20 20:09 Last Admin: 06/11/20 20:22 Dose: 4 mg Documented by: Ondansetron HCl (Zofran) 4 mg IVPUSH ONETIME ONE Stop: 06/11/20 20:55 Last Admin: 06/11/20 21:19 Dose: 4 mg Documented by: Ondansetron HCl (Zofran) 4 mg IVPUSH ONETIME ONE Stop: 06/11/20 23:20 Last Admin: 06/12/20 00:03 Dose: Not Given Documented by: Propofol (Diprivan 20 Ml) Confirm Administered Dose 400 mg .ROUTE .STK-MED ONE Stop: 06/12/20 11:45 Sodium Chloride (Saline Flush) 10 ml FLUSH ASDIRECTED PRN PRN Reason: Keep Vein Open Last Admin: 06/11/20 20:23 Dose: 10 ml Documented by: Sodium Chloride (Saline Flush) 2.5 ml FLUSH ASDIRECTED PRN PRN Reason: Keep Vein Open Last Admin: 06/11/20 20:23 Dose: 2.5 ml Documented by:
[2020-06-13 12:14] VITALS: BP 139/81; PULSE 86
== END 2020-06-13 12:50 | disposition home or self-care (01) ==
LOC: MW.ED 19:48 → MW.MS 23:20
PROVIDERS: ADMIT Internal Medicine; ATTEND Internal Medicine
DX: K29.50 Unspecified chronic gastritis without bleeding (principal); I10 Essential (primary) hypertension; G89.29 Other chronic pain; K85.90 Acute pancreatitis without necrosis or infection, unspecified; E11.42 Type 2 diabetes mellitus with diabetic polyneuropathy; F41.9 Anxiety disorder, unspecified; F32.9 Major depressive disorder, single episode, unspecified; Z90.49 Acquired absence of other specified parts of digestive tract; Z88.8 Allergy status to other drugs, medicaments and biological substances; Z88.5 Allergy status to narcotic agent; Z88.1 Allergy status to other antibiotic agents; Z88.2 Allergy status to sulfonamides; Z79.899 Other long term (current) drug therapy; Z79.84 Long term (current) use of oral hypoglycemic drugs; Z01.812 Encounter for preprocedural laboratory examination; Z20.828 Contact with and (suspected) exposure to other viral communicable diseases
CPT/HCPCS: 36415; 43239; 70450; 71045; 74177; 80048; 80053; 81003; 82272; 82962; 83690; 84484; 85025; 85610; 86900; 86901; 87338; 87635; 93005; C9113; J1815; J2250; J2405; J2704; J2765; J3010; J3490; J7030; Q9967; 00731; 93010; 96361; 96374; 96375; 96376; 99284; 99285-25; U0002